=== PATIENT | female | born 1950 | race Caucasian/White ===

== ENCOUNTER 2017-05-08 18:32 | Emergency (ER) | payer MEDICARE, MEDICAID ==
[~2017-05-08 18:32] MED LIST: ALEN70TA5 PO; Albuterol Sulfate NEB; BEND25VI IV; CLON0.5T3 PO; CLON1TAB3 PO; DICY10CA53 PO; DIPH50VI IVP; DULO60CA6 PO; FLUC100T7 PO; FLUT9.9S NS; HYDR5SUS PO; Hydrocodone/Acetaminophen PO; LEVO500T59 PO; LEVO500T8 PO; LOPE1LIQ7 PO; LORA10TA68 PO; LOSA100T6 PO; MAGN100P MC; METR500T PO; MOME13HF IH; Metoprolol Tartrate IV; OMEP40CA5 PO; ONDA4TAB7 PO; OXCA150T3 PO; OXCA300T3 PO; POLY17PO29 PO; POTA20TA4 PO; PRED50TA PO; PROC25SU21 RC; PROM25TA10 PO; PYRI100T PO; RITU10VI IV; SULI200T2 PO; VALA500T5 PO; VENTOLIN HFA18 GM INH
[2017-05-08] MEDS ORDERED: ONDANSETRON ODT 4 MG TAB.RAPDIS. PO ONE (19:00)
[2017-05-08] MEDS ORDERED: LORazepam 1 MG TABLET PO ONE (19:00)
[2017-05-08 19:02] LABS: BILIRUBIN,URINE NEGATIVE (NEG); GLUCOSE,URINE NEGATIVE (NEG); NITRITE,URINE NEGATIVE (NEG); PH,URINE 8.5; PROTEIN,URINE NEGATIVE (NEG-TRACE); UROBILINOGEN,URINE 0.2 mg/dL (0.2 mg/dL)
[2017-05-08 19:06] LABS: BARBITURATES NEG (NEG); BENZODIAZEPINES NEG (NEG); CANNABINOIDS NEG (NEG); COCAINE NEG (NEG); METHADONE NEG (NEG); OPIATES NEG (NEG); PHENCYCLIDINE NEG (NEG)
[2017-05-08 19:13] LABS: BACTERIA,URINE FEW /HPF (0-FEW); RBC,URINE OCC /HPF (0-2); WBC,URINE OCC /HPF (0-4)
[2017-05-08 19:14] LABS: SQUAMOUS EPITHELIAL CELL,UR OCC /LPF
[2017-05-08 19:42] LABS: BASO % 1 % (0-3); EOS % 2 % (0-3); HEMATOCRIT 30.9 % (36.0-47.0); LYMPH # 0.4 x10^3/uL (1.0-4.8); LYMPH % 12 % (24-48); MEAN CORPUSCULAR HEMOGLOBIN 32 pg (25-35); MEAN CORPUSCULAR HGB CONC 36 g/dL (31-37); MEAN CORPUSCULAR VOLUME 88 fL (79-100); MONO % 12 % (0-9); NEUT % 73 % (31-73); PLATELET COUNT 181 x10^3/uL (140-400); RED CELL DISTRIBUTION WIDTH 13.3 % (11.5-14.5); WHITE BLOOD COUNT 3.8 x10^3/uL (4.0-11.0)
[2017-05-08 19:45] LABS: CALCIUM 8.5 mg/dL (8.5-10.1); CREATININE 0.8 mg/dL (0.6-1.0); GFR 71.1; POTASSIUM 4.1 mmol/L (3.5-5.1)
[2017-05-08 19:55] LABS: ETHANOL < 10 mg/dL (0-10)
[2017-05-08 19:59] LABS: ALBUMIN 3.7 g/dL (3.4-5.0); ALBUMIN/GLOBULIN RATIO 1.5 (1.0-1.7); MAGNESIUM 1.7 mg/dL (1.8-2.4); TOTAL BILIRUBIN 0.4 mg/dL (0.2-1.0); TOTAL PROTEIN 6.1 g/dL (6.4-8.2)
--- NOTE | 2017-05-08 20:39 | PHYS DOC ---
Past Medical History Past Medical History: Anxiety, Asthma, Bipolar, Cancer, Constipation, Depression, GERD, Hypertension, IBS, Migraines, Other Additional Past Medical Histor: Non Hodgkins Lymphoma- Mantle Cell Past Surgical History: Cholecystectomy, Tonsillectomy, Other Additional Past Surgical Histo: X3 D&C,GROIN BX,BONE MARROW BX,PORT-A-CATH PLACEMENT RIGHT CHEST Alcohol Use: None Drug Use: Benzodiazepine Adult General Chief Complaint Chief Complaint: SUICDAL IDEATION HPI HPI Patient is a 67 year old female presenting to the emergency department for evaluation of wanting to . She does not have a specific plan but she says with the chemotherapy and questionable family help that it has become too much and she wants to be gone. Review of Systems Review of Systems Constitutional: Denies fever or chills [] Respiratory: Denies cough or shortness of breath [] Cardiovascular: No additional information not addressed in HPI [] GI: Denies abdominal pain, nausea, vomiting, bloody stools or diarrhea [] Neurologic: Denies headache, focal weakness or sensory changes [] Current Medications Current Medications Current Medications Medications (Trade) Dose Ordered Sig/Lauryn Start Time Stop Time Status Last Admin Dose Admin Lorazepam (Ativan) 1 mg 1X ONCE 05/08/17 19:00 05/08/17 19:01 DC 05/08/17 19:19 1 MG Ondansetron HCl (Zofran Odt) 8 mg 1X ONCE 05/08/17 19:00 05/08/17 19:01 DC 05/08/17 19:20 8 MG Allergies Allergies Allergies Coded Allergies Type Severity Reaction Last Updated Verified Sulfa (Sulfonamide Antibiotics) Allergy Severe HIVES 05/04/15 Yes amoxicillin Allergy Severe N/V,HIVES 05/04/15 Yes aspirin Allergy Severe RASH ALL OVER BODY 05/07/15 Yes butalbital Allergy Severe RASH ALL OVER BODY 05/07/15 Yes caffeine Allergy Severe RASH ALL OVER BODY 05/07/15 Yes vancomycin Allergy Intermediate Rash 10/15/15 Yes Physical Exam Physical Exam Constitutional: Well developed, well nourished, no acute distress, non-toxic appearance. [] Cardiovascular:Heart rate regular rhythm, no murmur [] Lungs & Thorax: Bilateral breath sounds clear to auscultation [] Abdomen: Bowel sounds normal, soft, no tenderness, no masses, no pulsatile masses. [] Skin: Warm, dry, no erythema, no rash. [] Back: No tenderness, no CVA tenderness. [] Extremities: No tenderness, no cyanosis, no clubbing, ROM intact, no edema. [] Neurologic: Alert and oriented X 3, normal motor function, normal sensory function, no focal deficits noted. [] Current Patient Data Vital Signs Vital Signs Date Time Temp Pulse Resp B/P (MAP) Pulse Ox O2 Delivery O2 Flow Rate FiO2 05/08/17 18:48 98.0 76 18 147/80 (102) 100 Room Air 98.0 Lab Values Laboratory Tests Test 05/08/17 18:50 05/08/17 19:20 Urine Collection Type Unknown Urine Color Yellow Urine Clarity Clear Urine pH 8.5 Urine Specific [place] 1.010 Urine Protein Negative mg/dL (NEG-TRACE) Urine Glucose (UA) Negative mg/dL (NEG) Urine Ketones (Stick) Negative mg/dL (NEG) Urine Blood Negative (NEG) Urine Nitrite Negative (NEG) Urine Bilirubin Negative (NEG) Urine Urobilinogen Dipstick 0.2 mg/dL (0.2 mg/dL) Urine Leukocyte Esterase Negative (NEG) Urine RBC Occ /HPF (0-2) Urine WBC Occ /HPF (0-4) Urine Squamous Epithelial Cells Occ /LPF Urine Bacteria Few /HPF (0-FEW) Urine Opiates Screen Neg (NEG) Urine Methadone Screen Neg (NEG) Urine Barbiturates Neg (NEG) Urine Phencyclidine Screen Neg (NEG) Urine Amphetamine/Methamphetamine Neg (NEG) Urine Benzodiazepines Screen Neg (NEG) Urine Cocaine Screen Neg (NEG) Urine Cannabinoids Screen Neg (NEG) Urine Ethyl Alcohol Neg (NEG) White Blood Count 3.8 x10^3/uL (4.0-11.0) L Red Blood Count 3.50 x10^6/uL (3.50-5.40) Hemoglobin 11.0 g/dL (12.0-15.5) L Hematocrit 30.9 % (36.0-47.0) L Mean Corpuscular Volume 88 fL (79-100) Mean Corpuscular Hemoglobin 32 pg (25-35) Mean Corpuscular Hemoglobin Concent 36 g/dL (31-37) Red Cell Distribution Width 13.3 % (11.5-14.5) Platelet Count 181 x10^3/uL (140-400) Neutrophils (%) (Auto) 73 % (31-73) Lymphocytes (%) (Auto) 12 % (24-48) L Monocytes (%) (Auto) 12 % (0-9) H Eosinophils (%) (Auto) 2 % (0-3) Basophils (%) (Auto) 1 % (0-3) Neutrophils # (Auto) 2.8 x10^3uL (1.8-7.7) Lymphocytes # (Auto) 0.4 x10^3/uL (1.0-4.8) L Monocytes # (Auto) 0.4 x10^3/uL (0.0-1.1) Eosinophils # (Auto) 0.1 x10^3/uL (0.0-0.7) Basophils # (Auto) 0.0 x10^3/uL (0.0-0.2) Sodium Level 132 mmol/L (136-145) L Potassium Level 4.1 mmol/L (3.5-5.1) Chloride Level 97 mmol/L (98-107) L Carbon Dioxide Level 22 mmol/L (21-32) Anion Gap 13 (6-14) Blood Urea Nitrogen 9 mg/dL (7-20) Creatinine 0.8 mg/dL (0.6-1.0) Estimated GFR (Cockcroft-Gault) 71.1 BUN/Creatinine Ratio 11 (6-20) Glucose Level 107 mg/dL (70-99) H Calcium Level 8.5 mg/dL (8.5-10.1) Magnesium Level 1.7 mg/dL (1.8-2.4) L Total Bilirubin 0.4 mg/dL (0.2-1.0) Aspartate Amino Transferase (AST) 12 U/L (15-37) L Alanine Aminotransferase (ALT) 25 U/L (14-59) Alkaline Phosphatase 89 U/L (46-116) Total Protein 6.1 g/dL (6.4-8.2) L Albumin 3.7 g/dL (3.4-5.0) Albumin/Globulin Ratio 1.5 (1.0-1.7) Thyroid Stimulating Hormone (TSH) 1.888 uIU/mL (0.358-3.74) Salicylates Level < 2.8 mg/dL (2.8-20.0) L Salicylate Last Dose Date Salicylate Last Dose Time Acetaminophen Level < 2 mcg/ml (10-30) L Acetaminophen Last Dose Date Acetaminophen Last Dose Time Ethyl Alcohol Level < 10 mg/dL (0-10) Laboratory Tests 05/08/17 19:20 Laboratory Tests 05/08/17 19:20 EKG EKG [] Radiology/Procedures Radiology/Procedures [] Course & Med Decision Making Course & Med Decision Making Patient with suicidal ideation so the PACT team is speaking to the patient and will plan accordingly. Patient is medically cleared from my standpoint. Will transfer care while awaiting psychiatric plan. Dragon Disclaimer Dragon Disclaimer This electronic medical record was generated, in whole or in part, using a voice recognition dictation system. Departure Departure Impression: Primary Impression: Suicidal ideation Referrals: JANNY MAY MD (PCP) ALDO JOHNSON DO May 08, 2017 20:39
[2017-05-08 21:00] VITALS: BP 141/102
== END 2017-05-08 21:45 | disposition home or self-care (01) ==
LOC: ER 18:32
DX: R45.851 Suicidal ideations (principal); F41.9 Anxiety disorder, unspecified; I10 Essential (primary) hypertension; J45.909 Unspecified asthma, uncomplicated; K21.9 Gastro-esophageal reflux disease without esophagitis; K58.9 Irritable bowel syndrome, unspecified; G43.909 Migraine, unspecified, not intractable, without status migrainosus; F31.9 Bipolar disorder, unspecified; Z85.72 Personal history of non-Hodgkin lymphomas; Z90.710 Acquired absence of both cervix and uterus; Z88.2 Allergy status to sulfonamides; Z88.1 Allergy status to other antibiotic agents; Z88.6 Allergy status to analgesic agent; Z88.5 Allergy status to narcotic agent; Z88.8 Allergy status to other drugs, medicaments and biological substances
CPT/HCPCS: 36415; 80053; 80307; 80329; 81001; 83735; 84443; 85025; 99284; G0480; Q0162; G0479

== ENCOUNTER 2017-06-29 12:06 | Emergency (ER) | payer MEDICARE, MEDICAID ==
[~2017-06-29] VITALS: Ht 162.6 cm; Wt 56.7 kg
[2017-06-29] MEDS ORDERED: IV NORMAL SALINE 500ML BAG 500 ML IV ONE (14:00)
--- NOTE | 2017-06-29 14:19 | EKG ---
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
[2017-06-29 15:11] LABS: BASO % 1 % (0-3); EOS % 2 % (0-3); HEMATOCRIT 32.6 % (36.0-47.0); HEMOGLOBIN 11.4 g/dL (12.0-15.5); LYMPH # 0.4 x10^3/uL (1.0-4.8); LYMPH % 10 % (24-48); MEAN CORPUSCULAR HEMOGLOBIN 31 pg (25-35); MEAN CORPUSCULAR HGB CONC 35 g/dL (31-37); MEAN CORPUSCULAR VOLUME 90 fL (79-100); MONO % 14 % (0-9); NEUT % 73 % (31-73); PLATELET COUNT 170 x10^3/uL (140-400); RED BLOOD COUNT 3.64 x10^6/uL (3.50-5.40); RED CELL DISTRIBUTION WIDTH 13.1 % (11.5-14.5); WHITE BLOOD COUNT 4.2 x10^3/uL (4.0-11.0)
[2017-06-29 15:31] LABS: CALCIUM 8.6 mg/dL (8.5-10.1); CREATININE 0.7 mg/dL (0.6-1.0)
[2017-06-29 15:49] LABS: ALBUMIN 3.8 g/dL (3.4-5.0); DIRECT BILIRUBIN 0.1 mg/dL (0.0-0.2); TOTAL BILIRUBIN 0.4 mg/dL (0.2-1.0)
[2017-06-29 16:09] LABS: % EOS 4 % (0-5); PLT ESTIMATE ADEQUATE (ADEQUATE)
[2017-06-29 16:10] LABS: OVALOCYTES FEW; POIKILOCYTOSIS SLIGHT
[2017-06-29 16:30] VITALS: BP 154/77
[2017-06-29] MEDS ORDERED: POTA20TA82 PO (16:45)
--- NOTE | 2017-06-29 16:45 | PHYS DOC ---
Past Medical History Past Medical History: Anxiety, Asthma, Bipolar, Cancer, Constipation, Depression, GERD, Hypertension, IBS, Migraines, Other Additional Past Medical Histor: Non Hodgkins Lymphoma- Mantle Cell Past Surgical History: Cholecystectomy, Tonsillectomy, Other Additional Past Surgical Histo: X3 D&C,GROIN BX,BONE MARROW BX,PORT-A-CATH PLACEMENT RIGHT CHEST Alcohol Use: None Drug Use: Benzodiazepine Adult General Chief Complaint Chief Complaint: DIARRHEA HPI HPI 67-year-old female presenting to the emergency department today with watery diarrhea this started about 3:00 this morning. She describes a bloating of the abdomen but no abdominal pain. She has been on antibiotics for sinus infection and currently undergoes chemotherapy for history of lymphoma. She denies having fevers or chills. Location GI tract. Duration intermittent. No alleviating or exacerbating factors. Review of systems is negative for chest pain shortness of breath fevers chills nausea or vomiting. All other review of systems is negative unless otherwise noted in history of present illness. ED course: 67-year-old female presenting to the emergency department today with watery diarrhea. Triage vital signs show hypertension otherwise her heart rate is within normal limits. Afebrile. Abdominal exam shows a soft nontender abdomen which is nondistended with normal bowel sounds. Otherwise lungs are clear to auscultation. The remainder the exam is unremarkable. IV established and 500 mL bolus given. Blood work obtained which showed low potassium. Given the patient's diarrhea in the context of antibiotic use we did send a Clostridium difficile PCR. This test does not come back while the patient is in the emergency department. Patient's vital signs have remained stable in the emergency department under observation. She is feeling better after her 500 mL bolus of fluids. I did explain to her that it is possible that this test could be positive and she would need to come back for antibiotic therapy for Clostridium difficile. Patient is comfortable with this plan. Clinically, the patient does not need to be admitted. The patient was then discharged home with oral potassium to follow-up with her doctor the next few days. I recommended she stop taking her antibiotics as there likely causing her diarrhea. Blood pressure came down in the emergency department. The patient was then discharged home in stable condition to follow up with their primary care physician over the next 2-3 days. They were to return if their symptoms worsened or if they were concerned for any reason. [id number] discharge instructions and return precautions were given. Patient's questions were answered to their satisfaction. Patient is comfortable plan. Review of Systems Review of Systems SEE ABOVE. Current Medications Current Medications Current Medications Medications (Trade) Dose Ordered Sig/Lauryn Start Time Stop Time Status Last Admin Dose Admin Heparin Sodium (Porcine) (Hep Lock Adult) 500 unit STK-MED ONCE 06/29/17 17:14 06/29/17 17:15 DC Sodium Chloride 500 ml @ 500 mls/hr 1X ONCE 06/29/17 14:00 06/29/17 14:59 DC 06/29/17 15:01 500 MLS/HR Allergies Allergies Allergies Coded Allergies Type Severity Reaction Last Updated Verified Sulfa (Sulfonamide Antibiotics) Allergy Severe HIVES 05/04/15 Yes amoxicillin Allergy Severe N/V,HIVES 05/04/15 Yes aspirin Allergy Severe RASH ALL OVER BODY 05/07/15 Yes butalbital Allergy Severe RASH ALL OVER BODY 05/07/15 Yes caffeine Allergy Severe RASH ALL OVER BODY 05/07/15 Yes vancomycin Allergy Intermediate Rash 10/15/15 Yes Physical Exam Physical Exam SEE ABOVE Constitutional: Well developed, well nourished, no acute distress, non-toxic appearance. [] HENT: Normocephalic, atraumatic, bilateral external ears normal, oropharynx moist, no oral exudates, nose normal. [] Eyes: PERRLA, EOMI, conjunctiva normal, no discharge. [] Neck: Normal range of motion, no tenderness, supple, no stridor. [] Cardiovascular:Heart rate regular rhythm, no murmur [] Lungs & Thorax: Bilateral breath sounds clear to auscultation [] Abdomen: SEE ABOVE Skin: Warm, dry, no erythema, no rash. [] Back: No tenderness, no CVA tenderness. [] Extremities: No tenderness, no cyanosis, no clubbing, ROM intact, no edema. [] Neurologic: Alert and oriented X 3, normal motor function, normal sensory function, no focal deficits noted. [] Psychologic: Affect normal, judgement normal, mood normal. [] Current Patient Data Vital Signs Vital Signs Date Time Temp Pulse Resp B/P (MAP) Pulse Ox O2 Delivery O2 Flow Rate FiO2 06/29/17 16:30 92 20 154/77 (102) 100 Room Air 06/29/17 13:35 97.9 97.9 Lab Values Laboratory Tests Test 06/29/17 14:55 White Blood Count 4.2 x10^3/uL (4.0-11.0) Red Blood Count 3.64 x10^6/uL (3.50-5.40) Hemoglobin 11.4 g/dL (12.0-15.5) L Hematocrit 32.6 % (36.0-47.0) L Mean Corpuscular Volume 90 fL (79-100) Mean Corpuscular Hemoglobin 31 pg (25-35) Mean Corpuscular Hemoglobin Concent 35 g/dL (31-37) Red Cell Distribution Width 13.1 % (11.5-14.5) Platelet Count 170 x10^3/uL (140-400) Neutrophils (%) (Auto) 73 % (31-73) Lymphocytes (%) (Auto) 10 % (24-48) L Monocytes (%) (Auto) 14 % (0-9) H Eosinophils (%) (Auto) 2 % (0-3) Basophils (%) (Auto) 1 % (0-3) Neutrophils # (Auto) 3.1 x10^3uL (1.8-7.7) Lymphocytes # (Auto) 0.4 x10^3/uL (1.0-4.8) L Monocytes # (Auto) 0.6 x10^3/uL (0.0-1.1) Eosinophils # (Auto) 0.1 x10^3/uL (0.0-0.7) Basophils # (Auto) 0.0 x10^3/uL (0.0-0.2) Segmented Neutrophils % 62 % (35-66) Band Neutrophils % 11 % (0-9) H Lymphocytes % 11 % (24-48) L Monocytes % 12 % (0-10) H Eosinophils % 4 % (0-5) Platelet Estimate Adequate (ADEQUATE) Poikilocytosis Slight Ovalocytes Few Sodium Level 134 mmol/L (136-145) L Potassium Level 3.0 mmol/L (3.5-5.1) L Chloride Level 100 mmol/L (98-107) Carbon Dioxide Level 24 mmol/L (21-32) Anion Gap 10 (6-14) Blood Urea Nitrogen 14 mg/dL (7-20) Creatinine 0.7 mg/dL (0.6-1.0) Estimated GFR (Cockcroft-Gault) 83.0 Glucose Level 90 mg/dL (70-99) Lactic Acid Level 1.0 mmol/L (0.4-2.0) Calcium Level 8.6 mg/dL (8.5-10.1) Total Bilirubin 0.4 mg/dL (0.2-1.0) Direct Bilirubin 0.1 mg/dL (0.0-0.2) Aspartate Amino Transferase (AST) 14 U/L (15-37) L Alanine Aminotransferase (ALT) 32 U/L (14-59) Alkaline Phosphatase 98 U/L (46-116) Troponin I Quantitative < 0.017 ng/mL (0.000-0.055) VQ-Pmp-C-Type Natriuretic Peptide 276 pg/mL (0-124) H Total Protein 6.0 g/dL (6.4-8.2) L Albumin 3.8 g/dL (3.4-5.0) Lipase 190 U/L (73-393) Laboratory Tests 06/29/17 14:55 Laboratory Tests 06/29/17 14:55 EKG EKG [] Radiology/Procedures Radiology/Procedures [] Course & Med Decision Making Course & Med Decision Making Pertinent Labs and Imaging studies reviewed. (See chart for details) [] Dragon Disclaimer Dragon Disclaimer This electronic medical record was generated, in whole or in part, using a voice recognition dictation system. Departure Departure Impression: Primary Impression: Diarrhea Disposition: 01 HOME, SELF-CARE Condition: STABLE Referrals: JANNY MAY MD (PCP) Patient Instructions: Diarrhea Additional Instructions: Thank you for allowing us to participate in your care today. Followup with your primary care physician in 3 days if your symptoms do not improve. Call your Primary Doctor tomorrow and inform them of your visit today. If you do not have a primary care provider you can ask for a list of our primary care providers. Return to the emergency department you have any new or concerning findings. This should be evaluated by the primary care physician and any necessary consulting services for continued management within a few days after discharge. Return to emergency room if you have any new or concerning symptoms including but not limited to fever, chills, nausea, vomiting, intractable pain, any new rashes, chest pain, shortness of air, uncontrolled bleeding, difficulty breathing, and/or vision loss. Scripts Potassium Chloride (POTASSIUM CHLORIDE) 20 Meq Tablet.er 20 MEQ PO DAILY for 7 Days, #7 TAB.SR 0 Refills Prov: RONN GIBSON MD 06/29/17 RONN GIBSON MD Jun 29, 2017 16:45
[2017-06-29] MEDS ORDERED: HEPARIN PF 500 UNIT/5 ML DISP.SYRIN. IV ONE (17:14)
== END 2017-06-29 17:20 | disposition home or self-care (01) ==
LOC: ER 12:06
DX: R19.7 Diarrhea, unspecified (principal); R14.0 Abdominal distension (gaseous); K21.9 Gastro-esophageal reflux disease without esophagitis; J45.909 Unspecified asthma, uncomplicated; I10 Essential (primary) hypertension; K58.0 Irritable bowel syndrome with diarrhea; G43.909 Migraine, unspecified, not intractable, without status migrainosus; F31.9 Bipolar disorder, unspecified; Z90.49 Acquired absence of other specified parts of digestive tract; Z85.72 Personal history of non-Hodgkin lymphomas; Z88.2 Allergy status to sulfonamides; Z88.1 Allergy status to other antibiotic agents; Z88.6 Allergy status to analgesic agent; Z88.8 Allergy status to other drugs, medicaments and biological substances
CPT/HCPCS: 36415; 80048; 80076; 83605; 83690; 83880; 84484; 85007; 85025; 87324; 93005; 96360; 99285; J7040

== ENCOUNTER 2017-09-06 15:18 | Inpatient (IN) | payer MEDICARE, MEDICAID ==
[~2017-09-06] VITALS: Ht 160 cm; Wt 54.9 kg
[~2017-09-06 15:18] MED LIST changes: +POTA20TA82 PO
[2017-09-06 16:18] LABS: BASO % 1 % (0-3); EOS % 2 % (0-3); HEMATOCRIT 33.9 % (36.0-47.0); HEMOGLOBIN 11.5 g/dL (12.0-15.5); LYMPH # 0.4 x10^3/uL (1.0-4.8); LYMPH % 16 % (24-48); MEAN CORPUSCULAR HEMOGLOBIN 31 pg (25-35); MEAN CORPUSCULAR HGB CONC 34 g/dL (31-37); MEAN CORPUSCULAR VOLUME 91 fL (79-100); MONO % 13 % (0-9); NEUT % 68 % (31-73); PLATELET COUNT 212 x10^3/uL (140-400); RED BLOOD COUNT 3.72 x10^6/uL (3.50-5.40); RED CELL DISTRIBUTION WIDTH 13.8 % (11.5-14.5); WHITE BLOOD COUNT 2.6 x10^3/uL (4.0-11.0)
[2017-09-06 16:33] LABS: CALCIUM 8.2 mg/dL (8.5-10.1); CREATININE 0.5 mg/dL (0.6-1.0); GFR 122.3; POTASSIUM 3.9 mmol/L (3.5-5.1)
--- NOTE | 2017-09-06 16:36 | EKG ---
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
--- NOTE | 2017-09-06 16:37 | PHYS DOC ---
Past Medical History Past Medical History: Anxiety, Asthma, Bipolar, Cancer, Constipation, Depression, GERD, Hypertension, IBS, Migraines, Other Additional Past Medical Histor: Non Hodgkins Lymphoma- Mantle Cell Past Surgical History: Cholecystectomy, Tonsillectomy, Other Additional Past Surgical Histo: X3 D&C,GROIN BX,BONE MARROW BX,PORT-A-CATH PLACEMENT RIGHT CHEST Alcohol Use: None Drug Use: Benzodiazepine Adult General Chief Complaint Chief Complaint: NEURO SYMPTOMS/DEFICITS HPI HPI Patient is a 67 year old F who presents with headache and neck pain. 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 Patient severed had symptoms like this before. Patient states the symptoms lasted for approximately 30 minutes and then her vision got better however the headache and neck pain is still present. In the emergency room patient still complains of a headache and neck pain. Patient also complains of some chest heaviness but declines any shortness of breath. Patient denied any other neurological deficits in the arms or legs and has no other complaints. Review of Systems Review of Systems GEN: Denies fevers, chills, sweats HEENT: Neck pain CV: Denies chest pain RESP: Denies shortness of air, cough GI: Denies n/v/d NEURO: Headache MSK: Denies weakness, joint pain/swelling All other systems were reviewed and found to be within normal limits, except as documented in this note. Current Medications Current Medications Current Medications Medications (Trade) Dose Ordered Sig/Lauryn Start Time Stop Time Status Last Admin Dose Admin Fentanyl Citrate (Fentanyl 2ml Vial) 50 mcg PRN Q1HR PRN 09/06/17 18:45 09/07/17 18:44 Info (Do NOT chart on this entry -- for MONITORING) 1 each PRN DAILY PRN 09/06/17 16:45 09/08/17 16:44 Iohexol (Omnipaque 300 Mg/ml) 75 ml 1X ONCE 09/06/17 16:45 09/06/17 16:46 DC Ondansetron HCl (Zofran) 4 mg PRN Q8HRS PRN 09/06/17 18:45 09/07/17 18:44 Allergies Allergies Allergies Coded Allergies Type Severity Reaction Last Updated Verified Sulfa (Sulfonamide Antibiotics) Allergy Severe HIVES 05/04/15 Yes amoxicillin Allergy Severe N/V,HIVES 05/04/15 Yes aspirin Allergy Severe RASH ALL OVER BODY 05/07/15 Yes butalbital Allergy Severe RASH ALL OVER BODY 05/07/15 Yes caffeine Allergy Severe RASH ALL OVER BODY 05/07/15 Yes vancomycin Allergy Intermediate Rash 10/15/15 Yes Physical Exam Physical Exam GEN.: Mild distress. Alert and oriented. HEENT: Head is normocephalic, atraumatic NECK: Supple, no C-spine midline tenderness LUNGS: CTAB. HEART: RRR, S1, S2 present. Peripheral pulses intact ABDOMEN: Soft, nontender. Positive bowel sounds. EXTREMITIES: Without any cyanosis, 5/5 muscle strength to the upper extremity and lower extremity bilateral NEUROLOGIC: Normal speech, normal tone, cranial nerves II through XII are grossly intact without any focal neurological deficits PSYCHIATRIC: Normal affect, normal mood. SKIN: No ulcerations Current Patient Data Vital Signs Vital Signs Date Time Temp Pulse Resp B/P (MAP) Pulse Ox O2 Delivery O2 Flow Rate FiO2 09/06/17 17:09 Room Air 09/06/17 15:19 97.8 81 21 182/78 (112) 98 97.8 Lab Values Laboratory Tests Test 09/06/17 15:45 09/06/17 17:10 White Blood Count 2.6 x10^3/uL (4.0-11.0) L Red Blood Count 3.72 x10^6/uL (3.50-5.40) Hemoglobin 11.5 g/dL (12.0-15.5) L Hematocrit 33.9 % (36.0-47.0) L Mean Corpuscular Volume 91 fL (79-100) Mean Corpuscular Hemoglobin 31 pg (25-35) Mean Corpuscular Hemoglobin Concent 34 g/dL (31-37) Red Cell Distribution Width 13.8 % (11.5-14.5) Platelet Count 212 x10^3/uL (140-400) Neutrophils (%) (Auto) 68 % (31-73) Lymphocytes (%) (Auto) 16 % (24-48) L Monocytes (%) (Auto) 13 % (0-9) H Eosinophils (%) (Auto) 2 % (0-3) Basophils (%) (Auto) 1 % (0-3) Neutrophils # (Auto) 1.8 x10^3uL (1.8-7.7) Lymphocytes # (Auto) 0.4 x10^3/uL (1.0-4.8) L Monocytes # (Auto) 0.3 x10^3/uL (0.0-1.1) Eosinophils # (Auto) 0.1 x10^3/uL (0.0-0.7) Basophils # (Auto) 0.0 x10^3/uL (0.0-0.2) Segmented Neutrophils % 73 % (35-66) H Band Neutrophils % 2 % (0-9) Lymphocytes % 13 % (24-48) L Monocytes % 10 % (0-10) Eosinophils % 2 % (0-5) Platelet Estimate Adequate (ADEQUATE) Large Platelets Occ Polychromasia Slight Target Cells Occ Ovalocytes Occ Sodium Level 140 mmol/L (136-145) Potassium Level 3.9 mmol/L (3.5-5.1) Chloride Level 103 mmol/L (98-107) Carbon Dioxide Level 25 mmol/L (21-32) Anion Gap 12 (6-14) Blood Urea Nitrogen 10 mg/dL (7-20) Creatinine 0.5 mg/dL (0.6-1.0) L Estimated GFR (Cockcroft-Gault) 122.3 BUN/Creatinine Ratio 20 (6-20) Glucose Level 89 mg/dL (70-99) Calcium Level 8.2 mg/dL (8.5-10.1) L Total Bilirubin 0.2 mg/dL (0.2-1.0) Aspartate Amino Transferase (AST) 17 U/L (15-37) Alanine Aminotransferase (ALT) 32 U/L (14-59) Alkaline Phosphatase 83 U/L (46-116) Troponin I Quantitative < 0.017 ng/mL (0.000-0.055) Total Protein 5.6 g/dL (6.4-8.2) L Albumin 3.5 g/dL (3.4-5.0) Albumin/Globulin Ratio 1.7 (1.0-1.7) Urine Color Yellow Urine Clarity Clear Urine pH 8.5 Urine Specific [place] 1.015 Urine Protein Negative mg/dL (NEG-TRACE) Urine Glucose (UA) Negative mg/dL (NEG) Urine Ketones (Stick) Negative mg/dL (NEG) Urine Blood Negative (NEG) Urine Nitrite Negative (NEG) Urine Bilirubin Negative (NEG) Urine Urobilinogen Dipstick 0.2 mg/dL (0.2 mg/dL) Urine Leukocyte Esterase Negative (NEG) Urine RBC 0 /HPF (0-2) Urine WBC Occ /HPF (0-4) Urine Squamous Epithelial Cells Occ /LPF Urine Bacteria 0 /HPF (0-FEW) Laboratory Tests 09/06/17 15:45 Laboratory Tests 09/06/17 15:45 EKG EKG 1635: EKG shows normal sinus rhythm rate of 76 no STEMI[] Radiology/Procedures Radiology/Procedures CTA head and neck NAD[] Course & Med Decision Making Course & Med Decision Making Pertinent Labs and Imaging studies reviewed. (See chart for details) ED course: Patient was seen and examined emergency room basic blood work was ordered along with a CTA head and neck Patient was updated on CT findings of no acute dissection however she still having neck pain and a headache therefore explained to the patient that we'll admit her and obtain an MRI of her head and neck 1820: Discussed CC/HP/PMH with Dr. Baugh and recommends admit with neurology on consult MDM: After reviewing the chart, CC/HPI/PMH, physical exam, [lab results], [ radiological results], I have concern the patient may have had a TIA and since the patient still having persistent neck and head pain will admit to the hospital for further evaluation and management and obtain an MRI of the head and neck. I've low mc for acute subarachnoid bleeding at this time I do not believe an LP is warranted. Dragon Disclaimer Dragon Disclaimer This electronic medical record was generated, in whole or in part, using a voice recognition dictation system. Departure Departure Impression: Primary Impression: Headache Additional Impression: Neck pain Disposition: ADMITTED INPATIENT Admitting Physician: Other (Amauri) Condition: STABLE Referrals: JANNY MAY MD (PCP) Problem Qualifiers MARLENA BAXTER DO Sep 06, 2017 16:36
[2017-09-06 16:39] LABS: ALBUMIN 3.5 g/dL (3.4-5.0); ALBUMIN/GLOBULIN RATIO 1.7 (1.0-1.7); TOTAL BILIRUBIN 0.2 mg/dL (0.2-1.0); TOTAL PROTEIN 5.6 g/dL (6.4-8.2)
[2017-09-06] MEDS ORDERED: CONTRAST GIVEN MC PRN (16:45)
[2017-09-06] MEDS ORDERED: fentaNYL PF VIAL 100 MCG/2 ML VIAL IV ONE (16:45)
[2017-09-06] MEDS ORDERED: IOHEXOL 300 MG/ML 100ML VIAL. IV ONE (16:45)
[2017-09-06 17:24] LABS: BILIRUBIN,URINE NEGATIVE (NEG); GLUCOSE,URINE NEGATIVE (NEG); NITRITE,URINE NEGATIVE (NEG); PH,URINE 8.5; PROTEIN,URINE NEGATIVE (NEG-TRACE); UROBILINOGEN,URINE 0.2 mg/dL (0.2 mg/dL)
[2017-09-06 17:29] LABS: % EOS 2 % (0-5); OVALOCYTES OCC; PLT ESTIMATE ADEQUATE (ADEQUATE); POLYCHROMASIA SLIGHT; TARGET CELLS OCC
--- NOTE | 2017-09-06 17:31 | RAD ---
CTA head and neck History: Headache and neck pain Technique: Noncontrast head CT was performed in correlation with this exam. After bolus of intravenous contrast, volumetric CT data acquisition was acquired of the head and neck. Multiplanar reconstruction images to include MIP and 3-D reconstruction images are submitted. Exposure: One or more of the following individualized dose reduction techniques were utilized for this examination: 1. Automated exposure control 2. Adjustment of the mA and/or kV according to patient size 3. Use of iterative reconstruction technique. Contrast: 75 cc Omnipaque 300 Comparison: None Any determination of stenosis is based on NASCET criteria. CTA head: Findings: There is some motion degradation.Both vertebral arteries constitute a basilar artery. There is visualization of segments of left PICA, bilateral AICAs, and superior cerebellar arteries. No significant posterior communicating arteries are visualized. There is patent anterior communicating artery. Right A1 segment is somewhat small in caliber compared with the left. There is visualization of segments of the anterior, middle, posterior cerebral arteries bilaterally. No significant intracranial aneurysm or stenosis is identified. Right transverse and sigmoid sinuses are dominant, hypoplastic on the left. Impression: 1. No significant intracranial stenosis or aneurysm is identified of the visualized intracranial vasculature. There is some motion degradation. Neck CTA: Findings: There is tortuosity of the cervical internal carotid arteries bilaterally, some medial deviation of the carotid arteries in the neck bilaterally into the retropharyngeal region greater on the right. No dissection flap is identified of the cervical arterial vasculature. No significant focal stenosis is identified. There is multilevel cervical facet degenerative change. There is multilevel advanced cervical degenerative disc disease C4-5 to C6-7 and to lesser degree at C3-4 with spondylosis at the same levels. There is multilevel cervical neural foramina compromise poorly characterized on this exam. There is at least mild spinal stenosis such as C3-4 through C6-7. Impression: 1. No significant stenosis or dissection flap is identified of the cervical arterial vasculature. 2. There is multilevel cervical degenerative disc disease and spondylosis. There is multilevel cervical spinal stenosis as well as neural foramina compromise. There is multilevel facet and uncovertebral degenerative change. Electronically signed by: Froilan Szymanski MD (09/06/2017 5:28 PM) [id number]
[2017-09-06 17:32] LABS: BACTERIA,URINE 0 /HPF (0-FEW); RBC,URINE 0 /HPF (0-2); SQUAMOUS EPITHELIAL CELL,UR OCC /LPF; WBC,URINE OCC /HPF (0-4)
[2017-09-06] MEDS ORDERED: fentaNYL PF VIAL 100 MCG/2 ML VIAL IV PRN (18:45)
[2017-09-06] MEDS ORDERED: ONDANSETRON PF 4 MG/2 ML VIAL. IV PRN (18:45)
[2017-09-06] MEDS ORDERED: GADOBUTROL 7.5 MMOL/7.5 ML VIAL IV ONE (19:30)
--- NOTE | 2017-09-06 20:57 | RAD ---
MRI of the C-spine without contrast HISTORY: Headache Multi sequential imaging of the cervical spine was performed before and after the administration of 5 mL IV gadovist. The vertebral bodies are aligned. There is no loss of vertebral body stature. There is no prevertebral soft tissue swelling. There is normal marrow signal. There is diffuse circumferential disc bulges resulting in flattening of the thecal sac at C4-C7 with complete effacement of CSF around the cord. It is not appearing flattening the cord. Cord has normal caliber and signal. At C3-C4 there is mild to moderate narrowing of the right neuroforamen. At C4-C5 there is mild narrowing of the neuroforamen bilaterally. At C5-C6 and C6-C7 there is mild narrowing of the neuroforamen bilaterally. IMPRESSION: Degenerative changes of the cervical spine with central and neural foraminal stenosis. No acute findings. Electronically signed by: Dave Treviño III, MD (09/06/2017 8:53 PM) [facility]
--- NOTE | 2017-09-06 21:10 | RAD ---
Brain MRI, With and Without Contrast: History: Head and neck pain Technique: Multiplanar and multisequence imaging of the brain was performed, before and after the administration of 5 cc of IV gadovist contrast. Diffusion weighted sequences were performed. Findings: There is no mass effect or extraaxial fluid collections. There is no hydrocephalus. There is moderate diffuse cerebral atrophy. There is mild patchy white matter signal abnormality in the periventricular and subcortical white matter with high signal on T2 in the low to intermediate signal on T1. Diffusion weighted sequences demonstrate no imaging evidence of acute ischemia. There is no mass. There is no gross bleed. There is no abnormal enhancement. Impression: 1. Moderate diffuse age expected atrophy. 2.Mild diffuse white matter disease is nonspecific but likely secondary to chronic small vessel disease. 3. No acute findings. Electronically signed by: Dave Treviño III, MD (09/06/2017 9:07 PM) [facility]
[2017-09-06] MEDS ORDERED: LOSA100T2 PO (22:08)
[2017-09-06] MEDS ORDERED: CETI10TA16 PO (22:08)
[2017-09-06] MEDS ORDERED: HYOS0.1278 SL (22:08)
[2017-09-06] MEDS ORDERED: CALC1CAP7 PO (22:13)
[2017-09-06] MEDS ORDERED: ASCO500T PO (22:13)
[2017-09-06] MEDS ORDERED: MELA3TAB2 PO (22:13)
[2017-09-06] MEDS ORDERED: LACT1CAP21 PO (22:13)
[2017-09-06] MEDS ORDERED: CARV6.25 PO (22:13)
[2017-09-06] MEDS ORDERED: MULT1TAB52 PO (22:13)
[2017-09-06] MEDS ORDERED: VENTOLIN HFA18 GM INH (22:14)
[2017-09-06] MEDS ORDERED: HYOSCYAMINE 0.125 MG TAB.RAPDIS PO PRN (23:15)
[2017-09-06] MEDS ORDERED: NON FORMULARY ITEM ([Albuterol Sulfate] (Ventolin Neb Soln) 2.5 MG) NEB PRN (23:15)
[2017-09-06 23:31] VITALS: BP 147/74
[2017-09-07] MEDS: OXcarbazepine 300 MG TABLET PO SCH ×3 (00:01→21:52)
--- NOTE | 2017-09-07 00:38 | HP ---
ADMIT DATE: 09/06/2017 CHIEF COMPLAINT: Dysarthria. HISTORY OF PRESENT ILLNESS: The patient is a 67-year-old woman with past medical history of bipolar disorder, asthma, and mantle cell lymphoma who presented to the Emergency Room after an episode of dysarthria and garbled speech. 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 She also had a headache that became worse and worse with right-sided neck pain and recalls that in the past couple of days she had white spots in front of her eyes "like slow flakes" from time to time. She relates that she has been diagnosed with neck arthritis and pain is typically on the left at this time; however, it was on the right. The symptoms actually spontaneously resolved save for the headache and neck pain. She denies any shortness of breath, nausea, vomiting or other neurological symptoms. She relates that she had been diagnosed with a complex migraine episode in 2005, no problems since. PAST MEDICAL HISTORY: Bipolar disorder, asthma, mantle cell lymphoma, hypertension, IBS, migraines, GERD. PAST SURGICAL HISTORY: She is status post cholecystectomy, tonsillectomy and D and C. FAMILY HISTORY: Positive for heart disease. SOCIAL HISTORY: She is , living with children and no toxic habits. ALLERGIES: SULFA, AMOXICILLIN, ASPIRIN, BUTALBITAL, CAFFEINE, AND VANCOMYCIN. MEDICATIONS: MAR reconciled with home medications. REVIEW OF SYSTEMS: Positive as per HPI. Currently, only headaches and neck pain in entire organ system review. PHYSICAL EXAMINATION: VITAL SIGNS: Show a blood pressure of 182/78 at admission in the Emergency Room, heart rate of 78, respiratory rate at 12. She is afebrile. GENERAL: This is a slim 67-year-old woman, alert and oriented, in no acute distress. HEENT: Shows no scleral icterus. NECK: Supple. LUNGS: Clear. HEART: Regular rate and rhythm. ABDOMEN: Has positive bowel sounds, soft, nontender. EXTREMITIES: Show no edema. SKIN: Warm, soft and dry. NEUROLOGIC: Shows cranial nerves 2-12 grossly intact. Muscle strength is 5/5 throughout. LABORATORY DATA: CBC with a WBC of 2.6, hemoglobin 11.5, platelets of 212. Chemistries with a BUN and creatinine of 10 and 0.5, normal electrolytes and normal LFTs. Albumin at 3.5. Urine is negative for any signs of infection. IMAGING: Cervical spine MRI as well as brain MRI shows moderate diffuse age-expected atrophy, mild diffuse white matter disease is nonspecific, but likely secondary to chronic small vessel disease, no acute findings. Head and neck CTA shows no significant stenosis or dissection flap in the cervical-arterial vasculature, multilevel cervical degenerative disk disease and spondylosis. ASSESSMENT AND PLAN: The patient is a 67-year-old woman presenting with some neurological symptoms, which now has resolved, unlikely to be stroke or TIA, but we will obtain neurological consult. MRI and CTA are essentially negative for disease in the neck or brain. She does have some DJD as known. We will continue all her other home medications for the time being. Await further input from Dr. Suggs. ROOSEVELT STEARNS MD DR: UR/nts JOB#: [id number] / [id number] JANNY Villalobos MD [facility]ITALNemesio
[2017-09-07] MEDS ORDERED: ALBUTEROL SULFATE 2.5 MG/3 ML NEBU. NEB PRN (01:00)
[2017-09-07 03:30] VITALS: BP 137/70
[2017-09-07] MEDS: ONDANSETRON ODT 4 MG TAB.RAPDIS. PO SCH ×3 (05:28→22:00)
[2017-09-07 07:09] LABS: CREATININE 0.7 mg/dL (0.6-1.0); POTASSIUM 3.3 mmol/L (3.5-5.1)
[2017-09-07 07:13] LABS: BASO % 0 % (0-3); EOS % 4 % (0-3); LYMPH # 0.1 x10^3/uL (1.0-4.8); LYMPH % 6 % (24-48); MEAN CORPUSCULAR HEMOGLOBIN 30 pg (25-35); MEAN CORPUSCULAR HGB CONC 34 g/dL (31-37); MEAN CORPUSCULAR VOLUME 90 fL (79-100); MONO % 6 % (0-9); NEUT % 84 % (31-73); PLATELET COUNT 201 x10^3/uL (140-400); RED BLOOD COUNT 3.99 x10^6/uL (3.50-5.40); RED CELL DISTRIBUTION WIDTH 13.8 % (11.5-14.5); WHITE BLOOD COUNT 2.4 x10^3/uL (4.0-11.0)
[2017-09-07 07:30] VITALS: BP 100/43
[2017-09-07] MEDS: PANTOPRAZOLE 40 MG TABLET.DR. PO SCH ×2 (08:37→17:13)
[2017-09-07] MEDS: CARVEDILOL 6.25 MG TABLET. PO SCH ×2 (08:38→17:25)
[2017-09-07] MEDS: clonazePAM 0.5 MG TABLET PO SCH ×3 (08:39→21:50)
[2017-09-07] MEDS: CETIRIZINE HCL 10 MG TABLET. PO SCH (08:39)
[2017-09-07] MEDS: DICYCLOMINE HCL 10 MG CAPSULE PO SCH ×3 (08:39→21:52)
[2017-09-07] MEDS: POTASSIUM CHLORIDE 20 MEQ TABLET.ER. PO SCH (08:40)
[2017-09-07] MEDS: DULoxetine HCL 30 MG CAPSULE.DR PO SCH (08:40)
[2017-09-07] MEDS: LOSARTAN POTASSIUM 50 MG TABLET. PO SCH (08:41)
[2017-09-07] MEDS: ALBUTEROL SULFATE 2.5 MG/3 ML NEBU. NEB SCH ×4 (08:57→19:59)
[2017-09-07] MEDS: BUDESONIDE 0.5 MG/2 ML NEBU. NEB SCH ×2 (08:57→19:59)
[2017-09-07] MEDS ORDERED: NON FORMULARY ITEM (Mometasone/Formoterol (Dulera 200 Mcg/5 Mcg Inhaler) 2 PUFF) IH SCH (09:00)
[2017-09-07] MEDS ORDERED: NON FORMULARY ITEM (Albuterol Sulfate (Ventolin Hfa Inhaler) 2 PUFF) INH SCH (09:00)
[2017-09-07 10:58] VITALS: BP 128/61
[2017-09-07 14:59] VITALS: BP 120/64
--- NOTE | 2017-09-07 16:06 | PDOC ---
PROGRESS NOTES Chief Complaint Chief Complaint Neurol deficits ASSESSMENT AND PLAN: 1. Expressive aphasia: resolved by the time she arrived in ER. MRI and CTA are essentially negative. awaiting Dr Suggs's input 2. Cervical DJD: known. suspect etiology of neck pain and arm paresthesias 3. Flushed upper torso and face: poss drug/contrast dye ASE. declines benadryl. ibuprofen PRN 4. Dispo: anticipate home in AM History of Present Illness History of Present Illness feels "awful", with flushing in face waxing and waning. mild LARIOS. Vitals Vitals Vital Signs Date Time Temp Pulse Resp B/P (MAP) Pulse Ox O2 Delivery O2 Flow Rate FiO2 09/07/17 14:59 98.2 92 16 120/64 (82) 100 Room Air 98.2 Physical Exam Physical Exam flushed General: Alert, Oriented X3, Cooperative, No acute distress Heart: Regular rate Lungs: Clear Abdomen: Normal bowel sounds, No tenderness Extremities: No clubbing Skin: Other (facial flushing) Labs LABS Laboratory Tests Test 09/06/17 17:10 09/07/17 06:50 Urine Color Yellow Urine Clarity Clear Urine pH 8.5 Urine Specific [place] 1.015 Urine Protein Negative mg/dL (NEG-TRACE) Urine Glucose (UA) Negative mg/dL (NEG) Urine Ketones (Stick) Negative mg/dL (NEG) Urine Blood Negative (NEG) Urine Nitrite Negative (NEG) Urine Bilirubin Negative (NEG) Urine Urobilinogen Dipstick 0.2 mg/dL (0.2 mg/dL) Urine Leukocyte Esterase Negative (NEG) Urine RBC 0 /HPF (0-2) Urine WBC Occ /HPF (0-4) Urine Squamous Epithelial Cells Occ /LPF Urine Bacteria 0 /HPF (0-FEW) White Blood Count 2.4 x10^3/uL (4.0-11.0) Red Blood Count 3.99 x10^6/uL (3.50-5.40) Hemoglobin 12.0 g/dL (12.0-15.5) Hematocrit 36.0 % (36.0-47.0) Mean Corpuscular Volume 90 fL (79-100) Mean Corpuscular Hemoglobin 30 pg (25-35) Mean Corpuscular Hemoglobin Concent 34 g/dL (31-37) Red Cell Distribution Width 13.8 % (11.5-14.5) Platelet Count 201 x10^3/uL (140-400) Neutrophils (%) (Auto) 84 % (31-73) Lymphocytes (%) (Auto) 6 % (24-48) Monocytes (%) (Auto) 6 % (0-9) Eosinophils (%) (Auto) 4 % (0-3) Basophils (%) (Auto) 0 % (0-3) Neutrophils # (Auto) 2.0 x10^3uL (1.8-7.7) Lymphocytes # (Auto) 0.1 x10^3/uL (1.0-4.8) Monocytes # (Auto) 0.1 x10^3/uL (0.0-1.1) Eosinophils # (Auto) 0.1 x10^3/uL (0.0-0.7) Basophils # (Auto) 0.0 x10^3/uL (0.0-0.2) Sodium Level 138 mmol/L (136-145) Potassium Level 3.3 mmol/L (3.5-5.1) Chloride Level 103 mmol/L (98-107) Carbon Dioxide Level 27 mmol/L (21-32) Anion Gap 8 (6-14) Blood Urea Nitrogen 10 mg/dL (7-20) Creatinine 0.7 mg/dL (0.6-1.0) Estimated GFR (Cockcroft-Gault) 83.0 Glucose Level 109 mg/dL (70-99) Calcium Level 8.0 mg/dL (8.5-10.1) Creatine Kinase 43 U/L (26-192) Vitamin B12 Level 212 pg/mL (247-911) 25-Hydroxy Vitamin D Total 29.0 ng/mL (30-100) ROOSEVELT STEARNS MD Sep 07, 2017 16:06
--- NOTE | 2017-09-07 18:03 | PDOC2 ---
NEUROLOGY CONSULT Date of Admission Date of Admission DATE: 09/07/17 TIME: 17:43 Reason for Consult Reason for Consult: IMPRESSION: Visual disturbances on 09/06. TIA? Headache, migraine. Neck pain. Non-Hodgkin's lymphoma-Mantle cell HTN Hypocalcemia. Vit B12 deficiency. Vit D insufficiency. No evidence of acute CVA this time. No evidence of C-cord disease. RECOMMENDATIONS/PLAN: Pain control for headaches. Persantine 25 mg daily, patient was allergic to ASA. Carotid A US + Doppler. Echo Fasting lipid panel in a.m. Vit B12 1000 mcg Inj daily, change to 1 mg PO daily at discharge. Vit D 3 1000 units daily. Calcium 500 mg bid. 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 No sensory or motor deficits. PAST MEDICAL HISTORY: Anxiety, Asthma, Bipolar, Cancer, Constipation, Depression, GERD, Hypertension, IBS, Migraines, Non Hodgkins Lymphoma- Mantle Cell PAST SURGERY HISTORY:Past Cholecystectomy, Tonsillectomy, X3 D&C,GROIN BX,BONE MARROW BX,PORT-A-CATH PLACEMENT RIGHT CHEST FAMILY HISTORY: Heart disease. SOCIAL HISTORY: She is , living with children and no toxic habits. ALLERGIES: SULFA, AMOXICILLIN, ASPIRIN, BUTALBITAL, CAFFEINE, AND VANCOMYCIN. MEDICATIONS: Refer to MAR REVIEW OF SYSTEMS: Constitutional: No malnutrition, cachexia. Head: No traumatic brain or head injury. Skin: No edema, or rash. Ear: No infection, tinnitus. Eyes: No vision loss or color blindness. Nose: No bleeding or purulent discharges. Hearing: No hearing decrease. Neck: No injury. Breast: No history of cancer, masses,or discharges. Cardiac: HTN. Pulmonary: No COPD. GI: No GI ulcer, GI bleeding. Urinary/genital: UTI. Endocrinologic: No cousin face, craniofacial dysmorphism, polydactyly. Skeletomuscular: No muscular atrophy, deformity. Neurological: see HP. Psychiatric: Denies drug use/abuse. Otherwise, not [id number] review of systems. PHYSICAL EXAMINATION: General appearance is in anxious. HEENT: Normocephalic and nontraumatic. Eyes, nose, ears, and throat are unremarkable. Neck is supple. No lymphadenopathy. No crepitus. Cardiovascular: S1, S2, regular rate and rhythm. Pulmonary: Clear to auscultation bilaterally. Abdomen: Bowel sounds are positive. Abdomen is soft, nontender, and nondistended. Extremities: No rash, lesions, or edema. No restriction of range of motion NEUROLOGICAL EXAMINATION: Alert Oriented to time, place and person. PERRL. EOMI. CN: no focal findings. Muscle tone: within normal. Muscle strength: 5 DTR: 2 Plantar reflex: Flexor response bilaterally Gait: not examined in bed. Sensory exam: no abnormal findings. No cerebellar signs elicited. F-T-N test accurate. Current Medications Current Medications Current Medications Fentanyl Citrate (Fentanyl 2ml Vial) 50 mcg 1X ONCE IV Last administered on 17:09; Start 09/06/17 at 16:45; Stop 09/06/17 at 16:46; Status DC Iohexol (Omnipaque 300 Mg/ml) 75 ml 1X ONCE IV ; Start 09/06/17 at 16:45; Stop 09/06/17 at 16:46; Status DC Info (Do NOT chart on this entry -- for MONITORING) 1 each PRN DAILY PRN MC SEE COMMENTS; Start 09/06/17 at 16:45; Stop 09/08/17 at 16:44 Ondansetron HCl (Zofran) 4 mg PRN Q8HRS PRN IV NAUSEA/VOMITING; Start at 18:45; Stop 09/07/17 at 18:44 Fentanyl Citrate (Fentanyl 2ml Vial) 50 mcg PRN Q1HR PRN IV PAIN Last administered on 09/06/17 19:09; Start 09/06/17 at 18:45; Stop 09/07/17 at 18 :44 Gadobutrol (Gadavist) 5 mmol 1X ONCE IV Last administered on 09/06/17 20:11 ; Start 09/06/17 at 19:30; Stop 09/06/17 at 19:31; Status DC Carvedilol (Coreg) 6.25 mg BIDWMEALS PO Last administered on 09/07/17 17:25; Start 09/07/17 at 08:00 Cetirizine HCl (ZyrTEC) 10 mg DAILY PO Last administered on 09/07/17 08:39; Start 09/07/17 at 09:00 Clonazepam (KlonoPIN) 0.5 mg BID92 PO Last administered on 09/07/17 17:21; Start 09/07/17 at 09:00 Clonazepam (KlonoPIN) 1 mg QHS PO Last administered on 09/07/17 00:00; Start 09/06/17 at 23:30 Dicyclomine HCl (Bentyl) 10 mg TID PO Last administered on 09/07/17 08:39; Start 09/07/17 at 09:00 Oxcarbazepine (Trileptal) 450 mg QHS PO Last administered on 09/07/17 00:01; Start 09/06/17 at 23:30 Non-Formulary Medication 2 puff QID INH ; Start 09/07/17 at 09:00; Status UNV Duloxetine HCl (Cymbalta) 90 mg DAILY PO Last administered on 09/07/17 08:40 ; Start 09/07/17 at 09:00 Hyoscyamine (Anaspaz) 0.125 mg PRN Q4HRS PRN PO NAUSEA/VOMITING -GIVE MED SL; Start 09/06/17 at 23:15 Losartan Potassium (Cozaar) 100 mg DAILY PO Last administered on 09/07/17 08: 41; Start 09/07/17 at 09:00 Zolpidem Tartrate (Ambien) 5 mg QHS PO Last administered on 09/07/17 00:00; Start 09/06/17 at 23:45 Non-Formulary Medication 2 puff BID94 IH ; Start 09/07/17 at 09:00; Status UNV Pantoprazole Sodium (Protonix) 40 mg BIDAC PO Last administered on 09/07/17 17:13; Start 09/07/17 at 07:30 Ondansetron HCl (Zofran Odt) 4 mg Q8HRS PO ; Start 09/07/17 at 06:00 Oxcarbazepine (Trileptal) 300 mg DAILY08 PO Last administered on 09/07/17 08: 41; Start 09/07/17 at 08:00 Potassium Chloride (Klor-Con) 20 meq DAILY08 PO Last administered on 08:40; Start 09/07/17 at 08:00 Non-Formulary Medication 2.5 mg PRN Q2HR PRN NEB WHEEZING; Start 09/06/17 at 23:15; Status UNV Albuterol Sulfate (Ventolin Neb Soln) 2.5 mg PRN Q2HRS PRN NEB SHORTNESS OF BREATH; Start 09/07/17 at 01:00 Budesonide (Pulmicort) 0.5 mg RTBID NEB Last administered on 09/07/17 08:57; Start 09/07/17 at 08:00 Albuterol Sulfate (Ventolin Neb Soln) 2.5 mg RTQID NEB Last administered on 16:18; Start 09/07/17 at 08:00 Active Scripts Active Potassium Chloride 20 Meq Tablet.er 20 Meq PO DAILY 7 Days Ventolin Hfa Inhaler (Albuterol Sulfate) 18 Gm Hfa.aer.ad 2 Puff INH QID Bentyl (Dicyclomine Hcl) 10 Mg Capsule 10 Mg PO TID [Albuterol Sulfate] 2.5 MG/3 ML Nebu 2.5 Mg NEB PRN Q2HR PRN Reported Ventolin Hfa Inhaler (Albuterol Sulfate) 18 Gm Hfa.aer.ad 2 Puff INH BID Culturelle (Lactobacillus Rhamnosus Gg) 1 Each Capsule 1 Each PO DAILY Multivitamins (Multivitamin) 1 Each Tablet 1 Tab PO DAILY Melatonin 3 Mg Tablet 10 Mg PO QHS Coreg (Carvedilol) 6.25 Mg Tablet 1 Tab PO BID Vitamin C (Ascorbic Acid) 500 Mg Tab.chew 500 Mg PO DAILY Calcium 600 + Vit D 400 Softgl (Calcium Carbonate/Vitamin D3) 1 Each Capsule 1 Each PO DAILY Hyoscyamine Sulfate 0.125 Mg Tab.subl 0.125 Mg SL PRN Q4-6HRS PRN Cetirizine Hcl 10 Mg Tablet 1 Tab PO DAILY Cozaar (Losartan Potassium) 100 Mg Tablet 100 Mg PO DAILY Zofran (Ondansetron Hcl) 4 Mg Tablet 1 Tab PO Q8HRS Dulera 200 Mcg/5 Mcg Inhaler (Mometasone/Formoterol) 13 Gm Hfa.aer.ad 2 Puff IH BID94 Alendronate Sodium 70 Mg Tablet 1 Tab PO WEEKLY Omeprazole 40 Mg Capsule.dr 40 Mg PO BID Clonazepam 1 Mg Tablet 1 Tab PO QHS Clonazepam 0.5 Mg Tablet 0.5 Mg PO BID92 Trileptal (Oxcarbazepine) 300 Mg Tablet 450 Mg PO QHS Trileptal (Oxcarbazepine) 150 Mg Tablet 2 Tab PO DAILY08 Cymbalta (Duloxetine Hcl) 60 Mg Capsule.dr 90 Mg PO DAILY Allergies Allergies: Coded Allergies: Sulfa (Sulfonamide Antibiotics) (Verified Allergy, Severe, HIVES, 05/04/15) amoxicillin (Verified Allergy, Severe, N/V,HIVES, 05/04/15) aspirin (Verified Allergy, Severe, RASH ALL OVER BODY, 05/07/15) butalbital (Verified Allergy, Severe, RASH ALL OVER BODY, 05/07/15) caffeine (Verified Allergy, Severe, RASH ALL OVER BODY, 05/07/15) vancomycin (Verified Allergy, Intermediate, Rash, 10/15/15) Vitals VITALS Vital Signs Date Time Temp Pulse Resp B/P (MAP) Pulse Ox O2 Delivery O2 Flow Rate FiO2 09/07/17 17:25 93 131/65 09/07/17 16:24 Room Air 09/07/17 14:59 98.2 16 100 98.2 Labs Labs Laboratory Tests Test 09/06/17 15:45 09/06/17 17:10 09/07/17 06:50 White Blood Count 2.6 x10^3/uL (4.0-11.0) 2.4 x10^3/uL (4.0-11.0) Red Blood Count 3.72 x10^6/uL (3.50-5.40) 3.99 x10^6/uL (3.50-5.40) Hemoglobin 11.5 g/dL (12.0-15.5) 12.0 g/dL (12.0-15.5) Hematocrit 33.9 % (36.0-47.0) 36.0 % (36.0-47.0) Mean Corpuscular Volume 91 fL (79-100) 90 fL (79-100) Mean Corpuscular Hemoglobin 31 pg (25-35) 30 pg (25-35) Mean Corpuscular Hemoglobin Concent 34 g/dL (31-37) 34 g/dL (31-37) Red Cell Distribution Width 13.8 % (11.5-14.5) 13.8 % (11.5-14.5) Platelet Count 212 x10^3/uL (140-400) 201 x10^3/uL (140-400) Neutrophils (%) (Auto) 68 % (31-73) 84 % (31-73) Lymphocytes (%) (Auto) 16 % (24-48) 6 % (24-48) Monocytes (%) (Auto) 13 % (0-9) 6 % (0-9) Eosinophils (%) (Auto) 2 % (0-3) 4 % (0-3) Basophils (%) (Auto) 1 % (0-3) 0 % (0-3) Neutrophils # (Auto) 1.8 x10^3uL (1.8-7.7) 2.0 x10^3uL (1.8-7.7) Lymphocytes # (Auto) 0.4 x10^3/uL (1.0-4.8) 0.1 x10^3/uL (1.0-4.8) Monocytes # (Auto) 0.3 x10^3/uL (0.0-1.1) 0.1 x10^3/uL (0.0-1.1) Eosinophils # (Auto) 0.1 x10^3/uL (0.0-0.7) 0.1 x10^3/uL (0.0-0.7) Basophils # (Auto) 0.0 x10^3/uL (0.0-0.2) 0.0 x10^3/uL (0.0-0.2) Segmented Neutrophils % 73 % (35-66) Band Neutrophils % 2 % (0-9) Lymphocytes % 13 % (24-48) Monocytes % 10 % (0-10) Eosinophils % 2 % (0-5) Platelet Estimate Adequate (ADEQUATE) Large Platelets Occ Polychromasia Slight Target Cells Occ Ovalocytes Occ Sodium Level 140 mmol/L (136-145) 138 mmol/L (136-145) Potassium Level 3.9 mmol/L (3.5-5.1) 3.3 mmol/L (3.5-5.1) Chloride Level 103 mmol/L (98-107) 103 mmol/L (98-107) Carbon Dioxide Level 25 mmol/L (21-32) 27 mmol/L (21-32) Anion Gap 12 (6-14) 8 (6-14) Blood Urea Nitrogen 10 mg/dL (7-20) 10 mg/dL (7-20) Creatinine 0.5 mg/dL (0.6-1.0) 0.7 mg/dL (0.6-1.0) Estimated GFR (Cockcroft-Gault) 122.3 83.0 BUN/Creatinine Ratio 20 (6-20) Glucose Level 89 mg/dL (70-99) 109 mg/dL (70-99) Calcium Level 8.2 mg/dL (8.5-10.1) 8.0 mg/dL (8.5-10.1) Total Bilirubin 0.2 mg/dL (0.2-1.0) Aspartate Amino Transf (AST/SGOT) 17 U/L (15-37) Alanine Aminotransferase (ALT/SGPT) 32 U/L (14-59) Alkaline Phosphatase 83 U/L (46-116) Troponin I Quantitative < 0.017 ng/mL (0.000-0.055) Total Protein 5.6 g/dL (6.4-8.2) Albumin 3.5 g/dL (3.4-5.0) Albumin/Globulin Ratio 1.7 (1.0-1.7) Urine Color Yellow Urine Clarity Clear Urine pH 8.5 Urine Specific [place] 1.015 Urine Protein Negative mg/dL (NEG-TRACE) Urine Glucose (UA) Negative mg/dL (NEG) Urine Ketones (Stick) Negative mg/dL (NEG) Urine Blood Negative (NEG) Urine Nitrite Negative (NEG) Urine Bilirubin Negative (NEG) Urine Urobilinogen Dipstick 0.2 mg/dL (0.2 mg/dL) Urine Leukocyte Esterase Negative (NEG) Urine RBC 0 /HPF (0-2) Urine WBC Occ /HPF (0-4) Urine Squamous Epithelial Cells Occ /LPF Urine Bacteria 0 /HPF (0-FEW) Creatine Kinase 43 U/L (26-192) Vitamin B12 Level 212 pg/mL (247-911) 25-Hydroxy Vitamin D Total 29.0 ng/mL (30-100) Laboratory Tests Test 09/07/17 06:50 White Blood Count 2.4 x10^3/uL (4.0-11.0) Red Blood Count 3.99 x10^6/uL (3.50-5.40) Hemoglobin 12.0 g/dL (12.0-15.5) Hematocrit 36.0 % (36.0-47.0) Mean Corpuscular Volume 90 fL (79-100) Mean Corpuscular Hemoglobin 30 pg (25-35) Mean Corpuscular Hemoglobin Concent 34 g/dL (31-37) Red Cell Distribution Width 13.8 % (11.5-14.5) Platelet Count 201 x10^3/uL (140-400) Neutrophils (%) (Auto) 84 % (31-73) Lymphocytes (%) (Auto) 6 % (24-48) Monocytes (%) (Auto) 6 % (0-9) Eosinophils (%) (Auto) 4 % (0-3) Basophils (%) (Auto) 0 % (0-3) Neutrophils # (Auto) 2.0 x10^3uL (1.8-7.7) Lymphocytes # (Auto) 0.1 x10^3/uL (1.0-4.8) Monocytes # (Auto) 0.1 x10^3/uL (0.0-1.1) Eosinophils # (Auto) 0.1 x10^3/uL (0.0-0.7) Basophils # (Auto) 0.0 x10^3/uL (0.0-0.2) Sodium Level 138 mmol/L (136-145) Potassium Level 3.3 mmol/L (3.5-5.1) Chloride Level 103 mmol/L (98-107) Carbon Dioxide Level 27 mmol/L (21-32) Anion Gap 8 (6-14) Blood Urea Nitrogen 10 mg/dL (7-20) Creatinine 0.7 mg/dL (0.6-1.0) Estimated GFR (Cockcroft-Gault) 83.0 Glucose Level 109 mg/dL (70-99) Calcium Level 8.0 mg/dL (8.5-10.1) Creatine Kinase 43 U/L (26-192) Vitamin B12 Level 212 pg/mL (247-911) 25-Hydroxy Vitamin D Total 29.0 ng/mL (30-100) ROSCOE BANGURA MD Sep 07, 2017 18:03
[2017-09-07 19:00] VITALS: BP 122/75
[2017-09-07] MEDS: DIPYRIDAMOLE 25 MG TABLET. PO SCH (19:00)
[2017-09-07] MEDS: CYANOCOBALAMIN (VITAMIN B-12) 1,000 MCG/ML VIAL IM SCH (19:00)
[2017-09-07] MEDS: clonazePAM 1 MG TABLET PO SCH ×2 (21:00)
[2017-09-07] MEDS: ZOLPIDEM 5 MG TABLET. PO SCH ×2 (21:00)
[2017-09-07] MEDS: CALCIUM CARBONATE 500 MG TABLET PO SCH (21:47)
[2017-09-07] MEDS: CHOLECALCIFEROL (VITAMIN D3) 1,000 UNIT TABLET PO SCH (21:50)
[2017-09-07 23:00] VITALS: BP 119/67
[2017-09-08 03:00] VITALS: BP 115/53
[2017-09-08] MEDS: ONDANSETRON ODT 4 MG TAB.RAPDIS. PO SCH ×3 (06:00→21:02)
[2017-09-08 07:00] VITALS: BP 115/73
[2017-09-08 07:23] LABS: CHOLESTEROL/HDL RATIO 2.5
[2017-09-08] MEDS: BUDESONIDE 0.5 MG/2 ML NEBU. NEB SCH ×2 (07:48→19:29)
[2017-09-08] MEDS: ALBUTEROL SULFATE 2.5 MG/3 ML NEBU. NEB SCH ×4 (07:48→19:29)
[2017-09-08] MEDS: POTASSIUM CHLORIDE 20 MEQ TABLET.ER. PO SCH (08:30)
[2017-09-08] MEDS: OXcarbazepine 300 MG TABLET PO SCH ×2 (08:30→20:18)
[2017-09-08] MEDS: DICYCLOMINE HCL 10 MG CAPSULE PO SCH ×3 (08:30→20:16)
[2017-09-08] MEDS: DULoxetine HCL 30 MG CAPSULE.DR PO SCH (08:31)
[2017-09-08] MEDS: CHOLECALCIFEROL (VITAMIN D3) 1,000 UNIT TABLET PO SCH (08:31)
[2017-09-08] MEDS: CETIRIZINE HCL 10 MG TABLET. PO SCH (08:31)
[2017-09-08] MEDS: LOSARTAN POTASSIUM 50 MG TABLET. PO SCH (08:31)
[2017-09-08] MEDS: PANTOPRAZOLE 40 MG TABLET.DR. PO SCH ×2 (08:31→16:40)
[2017-09-08] MEDS: CALCIUM CARBONATE 500 MG TABLET PO SCH ×2 (08:31→16:40)
[2017-09-08] MEDS: DIPYRIDAMOLE 25 MG TABLET. PO SCH ×3 (08:31→11:26)
[2017-09-08] MEDS: CARVEDILOL 6.25 MG TABLET. PO SCH ×2 (08:32→16:40)
[2017-09-08] MEDS: CYANOCOBALAMIN (VITAMIN B-12) 1,000 MCG/ML VIAL IM SCH (08:33)
--- NOTE | 2017-09-08 09:31 | RAD ---
Bilateral carotid Doppler 09/07/2017 INDICATION: TIA possible COMPARISON: CTA head and neck 09/06/2017. TECHNIQUE: Color, grayscale and doppler ultrasound images obtained of the carotid system bilaterally. Percent stenosis is estimated using criteria that correlates with NASCET methodology. FINDINGS: Peak systolic velocities are as follows in cm/s: Right Carotid System: Mid CCA: 61 cm/s Mid ICA: 51 cm/s Mid ICA EDV: 15 cm/s ECA: 62 cm/s ICA/CCA Ratio 0.8 Left Carotid System: Mid CCA: 77 Distal ICA: 115 cm/s Distal ICA EDV: 44 cm/s ECA: 78 cm/s ICA/CCA Ratio 1.4 Vertebral arteries are antegrade bilaterally. IMPRESSION: 1. No hemodynamically significant stenosis of the internal carotid arteries bilaterally.
[2017-09-08] MEDS ORDERED: diphenhydrAMINE HCL 25 MG CAPSULE PO ONE (10:30)
--- NOTE | 2017-09-08 10:31 | PDOC ---
PROGRESS NOTES Chief Complaint Chief Complaint severe headache 1. Expressive aphasia: resolved by the time she arrived in ER. MRI and CTA are negative. Dr Suggs's following 2. Cervical DJD: known. suspect etiology of neck pain and arm paresthesias 3. Flushed upper torso and face: poss drug/contrast dye ASE. declines benadryl. ibuprofen PRN 4. weakness and debility 5. vit d and B12 deficiency 6. Non-Hodgkin's lymphoma-Mantle cell lymphoma 7. HTN 8. Hypocalcemia. History of Present Illness History of Present Illness feels better, still flushed and red, is very concerned with flushing in face headache better still weakness she had a few questions on lovenox, proph meds, plan, Persantine 25 mg daily, patient was allergic to ASA. Vitals Vitals Vital Signs Date Time Temp Pulse Resp B/P (MAP) Pulse Ox O2 Delivery O2 Flow Rate FiO2 09/08/17 08:32 87 115/73 09/08/17 08:00 Room Air 09/08/17 07:45 95 09/08/17 07:00 97.3 16 97.3 Physical Exam Physical Exam flushed General: Alert, Oriented X3, Cooperative, No acute distress Heart: Regular rate Lungs: Clear Abdomen: Normal bowel sounds, No tenderness Extremities: No clubbing Skin: No rashes, Other (facial flushing) Labs LABS Laboratory Tests Test 09/08/17 06:50 Erythrocyte Sedimentation Rate 6 (0-25) Triglycerides Level 92 mg/dL (0-150) Cholesterol Level 108 mg/dL (0-200) LDL Cholesterol, Calculated 46 mg/dL (0-100) VLDL Cholesterol, Calculated 18 mg/dL (0-40) Non-HDL Cholesterol Calculated 64 mg/dL (0-129) HDL Cholesterol 44 mg/dL (40-60) Cholesterol/HDL Ratio 2.5 Review of Systems Review of Systems no n.v.d Assessment and Plan Assessmemt and Plan Problems Medical Problems: (1) Headache Status: Acute Problems: Comment Review of Relevant I have reviewed the following items sola (where applicable) has been applied. Labs Laboratory Tests Test 09/06/17 15:45 09/06/17 17:10 09/07/17 06:50 09/08/17 06:50 White Blood Count 2.6 x10^3/uL (4.0-11.0) 2.4 x10^3/uL (4.0-11.0) Red Blood Count 3.72 x10^6/uL (3.50-5.40) 3.99 x10^6/uL (3.50-5.40) Hemoglobin 11.5 g/dL (12.0-15.5) 12.0 g/dL (12.0-15.5) Hematocrit 33.9 % (36.0-47.0) 36.0 % (36.0-47.0) Mean Corpuscular Volume 91 fL (79-100) 90 fL (79-100) Mean Corpuscular Hemoglobin 31 pg (25-35) 30 pg (25-35) Mean Corpuscular Hemoglobin Concent 34 g/dL (31-37) 34 g/dL (31-37) Red Cell Distribution Width 13.8 % (11.5-14.5) 13.8 % (11.5-14.5) Platelet Count 212 x10^3/uL (140-400) 201 x10^3/uL (140-400) Neutrophils (%) (Auto) 68 % (31-73) 84 % (31-73) Lymphocytes (%) (Auto) 16 % (24-48) 6 % (24-48) Monocytes (%) (Auto) 13 % (0-9) 6 % (0-9) Eosinophils (%) (Auto) 2 % (0-3) 4 % (0-3) Basophils (%) (Auto) 1 % (0-3) 0 % (0-3) Neutrophils # (Auto) 1.8 x10^3uL (1.8-7.7) 2.0 x10^3uL (1.8-7.7) Lymphocytes # (Auto) 0.4 x10^3/uL (1.0-4.8) 0.1 x10^3/uL (1.0-4.8) Monocytes # (Auto) 0.3 x10^3/uL (0.0-1.1) 0.1 x10^3/uL (0.0-1.1) Eosinophils # (Auto) 0.1 x10^3/uL (0.0-0.7) 0.1 x10^3/uL (0.0-0.7) Basophils # (Auto) 0.0 x10^3/uL (0.0-0.2) 0.0 x10^3/uL (0.0-0.2) Segmented Neutrophils % 73 % (35-66) Band Neutrophils % 2 % (0-9) Lymphocytes % 13 % (24-48) Monocytes % 10 % (0-10) Eosinophils % 2 % (0-5) Platelet Estimate Adequate (ADEQUATE) Large Platelets Occ Polychromasia Slight Target Cells Occ Ovalocytes Occ Sodium Level 140 mmol/L (136-145) 138 mmol/L (136-145) Potassium Level 3.9 mmol/L (3.5-5.1) 3.3 mmol/L (3.5-5.1) Chloride Level 103 mmol/L (98-107) 103 mmol/L (98-107) Carbon Dioxide Level 25 mmol/L (21-32) 27 mmol/L (21-32) Anion Gap 12 (6-14) 8 (6-14) Blood Urea Nitrogen 10 mg/dL (7-20) 10 mg/dL (7-20) Creatinine 0.5 mg/dL (0.6-1.0) 0.7 mg/dL (0.6-1.0) Estimated GFR (Cockcroft-Gault) 122.3 83.0 BUN/Creatinine Ratio 20 (6-20) Glucose Level 89 mg/dL (70-99) 109 mg/dL (70-99) Calcium Level 8.2 mg/dL (8.5-10.1) 8.0 mg/dL (8.5-10.1) Total Bilirubin 0.2 mg/dL (0.2-1.0) Aspartate Amino Transf (AST/SGOT) 17 U/L (15-37) Alanine Aminotransferase (ALT/SGPT) 32 U/L (14-59) Alkaline Phosphatase 83 U/L (46-116) Troponin I Quantitative < 0.017 ng/mL (0.000-0.055) Total Protein 5.6 g/dL (6.4-8.2) Albumin 3.5 g/dL (3.4-5.0) Albumin/Globulin Ratio 1.7 (1.0-1.7) Urine Color Yellow Urine Clarity Clear Urine pH 8.5 Urine Specific [place] 1.015 Urine Protein Negative mg/dL (NEG-TRACE) Urine Glucose (UA) Negative mg/dL (NEG) Urine Ketones (Stick) Negative mg/dL (NEG) Urine Blood Negative (NEG) Urine Nitrite Negative (NEG) Urine Bilirubin Negative (NEG) Urine Urobilinogen Dipstick 0.2 mg/dL (0.2 mg/dL) Urine Leukocyte Esterase Negative (NEG) Urine RBC 0 /HPF (0-2) Urine WBC Occ /HPF (0-4) Urine Squamous Epithelial Cells Occ /LPF Urine Bacteria 0 /HPF (0-FEW) Creatine Kinase 43 U/L (26-192) Vitamin B12 Level 212 pg/mL (247-911) 25-Hydroxy Vitamin D Total 29.0 ng/mL (30-100) Erythrocyte Sedimentation Rate 6 (0-25) Triglycerides Level 92 mg/dL (0-150) Cholesterol Level 108 mg/dL (0-200) LDL Cholesterol, Calculated 46 mg/dL (0-100) VLDL Cholesterol, Calculated 18 mg/dL (0-40) Non-HDL Cholesterol Calculated 64 mg/dL (0-129) HDL Cholesterol 44 mg/dL (40-60) Cholesterol/HDL Ratio 2.5 Laboratory Tests Test 09/08/17 06:50 Erythrocyte Sedimentation Rate 6 (0-25) Triglycerides Level 92 mg/dL (0-150) Cholesterol Level 108 mg/dL (0-200) LDL Cholesterol, Calculated 46 mg/dL (0-100) VLDL Cholesterol, Calculated 18 mg/dL (0-40) Non-HDL Cholesterol Calculated 64 mg/dL (0-129) HDL Cholesterol 44 mg/dL (40-60) Cholesterol/HDL Ratio 2.5 Medications Current Medications Fentanyl Citrate (Fentanyl 2ml Vial) 50 mcg 1X ONCE IV Last administered on t 17:09; Start 09/06/17 at 16:45; Stop 09/06/17 at 16:46; Status DC Iohexol (Omnipaque 300 Mg/ml) 75 ml 1X ONCE IV ; Start 09/06/17 at 16:45; Stop 09/06/17 at 16:46; Status DC Info (Do NOT chart on this entry -- for MONITORING) 1 each PRN DAILY PRN MC SEE COMMENTS; Start 09/06/17 at 16:45; Stop 09/08/17 at 16:44 Ondansetron HCl (Zofran) 4 mg PRN Q8HRS PRN IV NAUSEA/VOMITING; Start at 18:45; Stop 09/07/17 at 18:44; Status DC Fentanyl Citrate (Fentanyl 2ml Vial) 50 mcg PRN Q1HR PRN IV PAIN Last administered on 09/06/17 19:09; Start 09/06/17 at 18:45; Stop 09/07/17 at 18 :44; Status DC Gadobutrol (Gadavist) 5 mmol 1X ONCE IV Last administered on 09/06/17 20:11 ; Start 09/06/17 at 19:30; Stop 09/06/17 at 19:31; Status DC Carvedilol (Coreg) 6.25 mg BIDWMEALS PO Last administered on 09/08/17 08:32; Start 09/07/17 at 08:00 Cetirizine HCl (ZyrTEC) 10 mg DAILY PO Last administered on 09/08/17 08:31; Start 09/07/17 at 09:00 Clonazepam (KlonoPIN) 0.5 mg BID92 PO Last administered on 09/07/17 21:50; Start 09/07/17 at 09:00 Clonazepam (KlonoPIN) 1 mg QHS PO Last administered on 09/07/17 00:00; Start 09/06/17 at 23:30 Dicyclomine HCl (Bentyl) 10 mg TID PO Last administered on 09/08/17 08:30; Start 09/07/17 at 09:00 Oxcarbazepine (Trileptal) 450 mg QHS PO Last administered on 09/07/17 21:52; Start 09/06/17 at 23:30 Non-Formulary Medication 2 puff QID INH ; Start 09/07/17 at 09:00; Status UNV Duloxetine HCl (Cymbalta) 90 mg DAILY PO Last administered on 09/08/17 08:31 ; Start 09/07/17 at 09:00 Hyoscyamine (Anaspaz) 0.125 mg PRN Q4HRS PRN PO NAUSEA/VOMITING -GIVE MED SL; Start 09/06/17 at 23:15 Losartan Potassium (Cozaar) 100 mg DAILY PO Last administered on 09/08/17 08: 31; Start 09/07/17 at 09:00 Zolpidem Tartrate (Ambien) 5 mg QHS PO Last administered on 09/07/17 00:00; Start 09/06/17 at 23:45 Non-Formulary Medication 2 puff BID94 IH ; Start 09/07/17 at 09:00; Status UNV Pantoprazole Sodium (Protonix) 40 mg BIDAC PO Last administered on 09/08/17 08:31; Start 09/07/17 at 07:30 Ondansetron HCl (Zofran Odt) 4 mg Q8HRS PO ; Start 09/07/17 at 06:00 Oxcarbazepine (Trileptal) 300 mg DAILY08 PO Last administered on 09/08/17 08: 30; Start 09/07/17 at 08:00 Potassium Chloride (Klor-Con) 20 meq DAILY08 PO Last administered on 08:30; Start 09/07/17 at 08:00 Non-Formulary Medication 2.5 mg PRN Q2HR PRN NEB WHEEZING; Start 09/06/17 at 23:15; Status UNV Albuterol Sulfate (Ventolin Neb Soln) 2.5 mg PRN Q2HRS PRN NEB SHORTNESS OF BREATH; Start 09/07/17 at 01:00 Budesonide (Pulmicort) 0.5 mg RTBID NEB Last administered on 09/08/17 07:48; Start 09/07/17 at 08:00 Albuterol Sulfate (Ventolin Neb Soln) 2.5 mg RTQID NEB Last administered on 07:48; Start 09/07/17 at 08:00 Dipyridamole (Persantine) 25 mg DAILY PO ; Start 09/07/17 at 19:00 Cyanocobalamin (Vitamin B-12) 1,000 mcg DAILY IM Last administered on 08:33; Start 09/07/17 at 19:00 Vitamin D (Vitamin D3) 1,000 unit DAILY PO Last administered on 09/08/17 08: 31; Start 09/07/17 at 19:00 Calcium Carbonate/ Glycine (Oscal) 500 mg BIDWMEALS PO Last administered on 08:31; Start 09/07/17 at 18:30 Active Scripts Active Potassium Chloride 20 Meq Tablet.er 20 Meq PO DAILY 7 Days Ventolin Hfa Inhaler (Albuterol Sulfate) 18 Gm Hfa.aer.ad 2 Puff INH QID Bentyl (Dicyclomine Hcl) 10 Mg Capsule 10 Mg PO TID [Albuterol Sulfate] 2.5 MG/3 ML Nebu 2.5 Mg NEB PRN Q2HR PRN Reported Ventolin Hfa Inhaler (Albuterol Sulfate) 18 Gm Hfa.aer.ad 2 Puff INH BID Culturelle (Lactobacillus Rhamnosus Gg) 1 Each Capsule 1 Each PO DAILY Multivitamins (Multivitamin) 1 Each Tablet 1 Tab PO DAILY Melatonin 3 Mg Tablet 10 Mg PO QHS Coreg (Carvedilol) 6.25 Mg Tablet 1 Tab PO BID Vitamin C (Ascorbic Acid) 500 Mg Tab.chew 500 Mg PO DAILY Calcium 600 + Vit D 400 Softgl (Calcium Carbonate/Vitamin D3) 1 Each Capsule 1 Each PO DAILY Hyoscyamine Sulfate 0.125 Mg Tab.subl 0.125 Mg SL PRN Q4-6HRS PRN Cetirizine Hcl 10 Mg Tablet 1 Tab PO DAILY Cozaar (Losartan Potassium) 100 Mg Tablet 100 Mg PO DAILY Zofran (Ondansetron Hcl) 4 Mg Tablet 1 Tab PO Q8HRS Dulera 200 Mcg/5 Mcg Inhaler (Mometasone/Formoterol) 13 Gm Hfa.aer.ad 2 Puff IH BID94 Alendronate Sodium 70 Mg Tablet 1 Tab PO WEEKLY Omeprazole 40 Mg Capsule. 40 Mg PO BID Clonazepam 1 Mg Tablet 1 Tab PO QHS Clonazepam 0.5 Mg Tablet 0.5 Mg PO BID92 Trileptal (Oxcarbazepine) 300 Mg Tablet 450 Mg PO QHS Trileptal (Oxcarbazepine) 150 Mg Tablet 2 Tab PO DAILY08 Cymbalta (Duloxetine Hcl) 60 Mg Capsule. 90 Mg PO DAILY Vitals/I & O Vital Sign - Last 24 Hours 09/07/17 09/07/17 09/07/17 09/07/17 10:58 11:48 14:59 16:24 Temp 98.4 98.2 98.4 98.2 Pulse 94 92 Resp 17 16 B/P (MAP) 128/61 (83) 120/64 (82) Pulse Ox 100 100 O2 Delivery Room Air Room Air Room Air Room Air 12/15/17 12/15/17 12/15/17 12/15/17 17:25 19:00 20:00 20:01 Temp 98.4 98.4 Pulse 93 85 Resp 16 B/P (MAP) 131/65 122/75 (91) Pulse Ox 98 99 O2 Delivery Room Air Room Air Room Air 09/07/17 09/07/17 09/08/17 09/08/17 20:01 23:00 03:00 07:00 Temp 98.5 98.0 97.3 98.5 98.0 97.3 Pulse 85 99 87 Resp 18 18 16 B/P (MAP) 119/67 (84) 115/53 (73) 115/73 (87) Pulse Ox 99 92 95 99 O2 Delivery Room Air Room Air Room Air Room Air 09/08/17 09/08/17 09/08/17 09/08/17 07:45 08:00 08:31 08:32 Pulse 87 87 B/P (MAP) 115/73 115/73 Pulse Ox 95 O2 Delivery Room Air Room Air Intake and Output 09/07/17 09/07/17 09/08/17 15:00 23:00 07:00 Intake Total 200 ml 500 ml 100 ml Balance 200 ml 500 ml 100 ml YUE SIU MD Sep 08, 2017 10:31
[2017-09-08 11:00] VITALS: BP 101/45
[2017-09-08] MEDS ORDERED: ERGOCALCIFEROL (VITAMIN D2) 50,000 UNIT CAPSULE. PO SCH (11:00)
[2017-09-08] MEDS: VITAMIN B12,B9,B6 COMPLEX 1 TABLET. PO SCH (11:26)
[2017-09-08] MEDS: clonazePAM 0.5 MG TABLET PO SCH (13:14)
[2017-09-08 15:00] VITALS: BP 100/44
[2017-09-08 19:00] VITALS: BP 118/62
[2017-09-08] MEDS: clonazePAM 1 MG TABLET PO SCH (20:16)
[2017-09-08] MEDS: diphenhydrAMINE HCL 25 MG CAPSULE PO PRN (20:17)
[2017-09-08] MEDS: ZOLPIDEM 5 MG TABLET. PO SCH (20:18)
[2017-09-08 23:34] VITALS: BP 120/56
[2017-09-09 03:00] VITALS: BP 126/65
[2017-09-09] MEDS: ONDANSETRON ODT 4 MG TAB.RAPDIS. PO SCH ×3 (06:00→21:56)
[2017-09-09 07:00] VITALS: BP 125/52
[2017-09-09] MEDS: ALBUTEROL SULFATE 2.5 MG/3 ML NEBU. NEB SCH ×4 (09:06→20:08)
[2017-09-09] MEDS: BUDESONIDE 0.5 MG/2 ML NEBU. NEB SCH ×2 (09:06→20:08)
[2017-09-09] MEDS: PANTOPRAZOLE 40 MG TABLET.DR. PO SCH ×2 (09:31→17:49)
[2017-09-09] MEDS: LOSARTAN POTASSIUM 50 MG TABLET. PO SCH (09:32)
[2017-09-09] MEDS: VITAMIN B12,B9,B6 COMPLEX 1 TABLET. PO SCH (09:32)
[2017-09-09] MEDS: DIPYRIDAMOLE 25 MG TABLET. PO SCH (09:32)
[2017-09-09] MEDS: diphenhydrAMINE HCL 25 MG CAPSULE PO PRN ×3 (09:32→21:58)
[2017-09-09] MEDS: CARVEDILOL 6.25 MG TABLET. PO SCH ×2 (09:33→17:49)
[2017-09-09] MEDS: DICYCLOMINE HCL 10 MG CAPSULE PO SCH ×3 (09:33→21:00)
[2017-09-09] MEDS: clonazePAM 0.5 MG TABLET PO SCH ×2 (09:33→14:42)
[2017-09-09] MEDS: CETIRIZINE HCL 10 MG TABLET. PO SCH (09:33)
[2017-09-09] MEDS: OXcarbazepine 300 MG TABLET PO SCH ×2 (09:33→21:42)
[2017-09-09] MEDS: CALCIUM CARBONATE 500 MG TABLET PO SCH ×2 (09:34→17:48)
[2017-09-09] MEDS: POTASSIUM CHLORIDE 20 MEQ TABLET.ER. PO SCH (09:34)
[2017-09-09] MEDS: DULoxetine HCL 30 MG CAPSULE.DR PO SCH (09:34)
[2017-09-09] MEDS: CYANOCOBALAMIN (VITAMIN B-12) 1,000 MCG/ML VIAL IM SCH (09:43)
[2017-09-09 11:00] VITALS: BP 128/68
[2017-09-09] MEDS ORDERED: DIPHENHYDRAMINE/ZINC ACETATE 2%/0.1% TOPICAL CREAM 28GM TUBE. TP SCH (14:15)
[2017-09-09 15:00] VITALS: BP 137/61
[2017-09-09] MEDS: HYDROCORTISONE 1% TOPICAL OINTMENT 30GM TUBE. TP SCH ×3 (15:31→23:49)
--- NOTE | 2017-09-09 16:40 | PDOC ---
PROGRESS NOTES Chief Complaint Chief Complaint severe headache 1. Expressive aphasia: resolved, poss TIA, MRI and CTA are negative. 2. Cervical DJD: neck pain and arm paresthesias 3. Flushed upper torso and face: allergy NOS, try benadryl cream and hydrocort cream, 4. weakness and debility 5. vit d and B12 deficiency 6. Non-Hodgkin's lymphoma-Mantle cell lymphoma 7. HTN 8. Hypocalcemia. History of Present Illness History of Present Illness feels better, still flushed and red, is upset about not improving her skin, would like a derm consult, " I cant go home like this" headache better still weakness str improved overall, other issues still seem to get better, < headache Vitals Vitals Vital Signs Date Time Temp Pulse Resp B/P (MAP) Pulse Ox O2 Delivery O2 Flow Rate FiO2 09/09/17 13:25 Room Air 09/09/17 11:00 97.1 90 22 128/68 (88) 97 97.1 Physical Exam Physical Exam flushed General: Alert, Oriented X3, Cooperative, No acute distress Heart: Regular rate Lungs: Clear Abdomen: Normal bowel sounds, No tenderness Extremities: No clubbing Skin: No rashes, Other (facial flushing) Review of Systems Review of Systems erythema and rash to arms, back , appears histamine reaction, unsure of what med would be insult, Assessment and Plan Assessmemt and Plan Problems Medical Problems: (1) Headache Status: Acute Problems: Comment Review of Relevant I have reviewed the following items sola (where applicable) has been applied. Labs Laboratory Tests Test 09/08/17 06:50 Erythrocyte Sedimentation Rate 6 (0-25) Triglycerides Level 92 mg/dL (0-150) Cholesterol Level 108 mg/dL (0-200) LDL Cholesterol, Calculated 46 mg/dL (0-100) VLDL Cholesterol, Calculated 18 mg/dL (0-40) Non-HDL Cholesterol Calculated 64 mg/dL (0-129) HDL Cholesterol 44 mg/dL (40-60) Cholesterol/HDL Ratio 2.5 Medications Current Medications Fentanyl Citrate (Fentanyl 2ml Vial) 50 mcg 1X ONCE IV Last administered on t 17:09; Start 09/06/17 at 16:45; Stop 09/06/17 at 16:46; Status DC Iohexol (Omnipaque 300 Mg/ml) 75 ml 1X ONCE IV ; Start 09/06/17 at 16:45; Stop 09/06/17 at 16:46; Status DC Info (Do NOT chart on this entry -- for MONITORING) 1 each PRN DAILY PRN MC SEE COMMENTS; Start 09/06/17 at 16:45; Stop 09/08/17 at 16:44; Status DC Ondansetron HCl (Zofran) 4 mg PRN Q8HRS PRN IV NAUSEA/VOMITING; Start at 18:45; Stop 09/07/17 at 18:44; Status DC Fentanyl Citrate (Fentanyl 2ml Vial) 50 mcg PRN Q1HR PRN IV PAIN Last administered on 09/06/17 19:09; Start 09/06/17 at 18:45; Stop 09/07/17 at 18 :44; Status DC Gadobutrol (Gadavist) 5 mmol 1X ONCE IV Last administered on 09/06/17 20:11 ; Start 09/06/17 at 19:30; Stop 09/06/17 at 19:31; Status DC Carvedilol (Coreg) 6.25 mg BIDWMEALS PO Last administered on 09/09/17 09:33; Start 09/07/17 at 08:00 Cetirizine HCl (ZyrTEC) 10 mg DAILY PO Last administered on 09/09/17 09:33; Start 09/07/17 at 09:00 Clonazepam (KlonoPIN) 0.5 mg BID92 PO Last administered on 09/09/17 14:42; Start 09/07/17 at 09:00 Clonazepam (KlonoPIN) 1 mg QHS PO Last administered on 09/08/17 20:16; Start 09/06/17 at 23:30 Dicyclomine HCl (Bentyl) 10 mg TID PO Last administered on 09/09/17 14:42; Start 09/07/17 at 09:00 Oxcarbazepine (Trileptal) 450 mg QHS PO Last administered on 09/08/17 20:18; Start 09/06/17 at 23:30 Non-Formulary Medication 2 puff QID INH ; Start 09/07/17 at 09:00; Status UNV Duloxetine HCl (Cymbalta) 90 mg DAILY PO Last administered on 09/09/17 09:34 ; Start 09/07/17 at 09:00 Hyoscyamine (Anaspaz) 0.125 mg PRN Q4HRS PRN PO NAUSEA/VOMITING -GIVE MED SL; Start 09/06/17 at 23:15 Losartan Potassium (Cozaar) 100 mg DAILY PO Last administered on 09/09/17 09: 32; Start 09/07/17 at 09:00 Zolpidem Tartrate (Ambien) 5 mg QHS PO Last administered on 09/08/17 20:18; Start 09/06/17 at 23:45 Non-Formulary Medication 2 puff BID94 IH ; Start 09/07/17 at 09:00; Status UNV Pantoprazole Sodium (Protonix) 40 mg BIDAC PO Last administered on 09/09/17 09:31; Start 09/07/17 at 07:30 Ondansetron HCl (Zofran Odt) 4 mg Q8HRS PO ; Start 09/07/17 at 06:00 Oxcarbazepine (Trileptal) 300 mg DAILY08 PO Last administered on 09/09/17 09: 33; Start 09/07/17 at 08:00 Potassium Chloride (Klor-Con) 20 meq DAILY08 PO Last administered on 09:34; Start 09/07/17 at 08:00 Non-Formulary Medication 2.5 mg PRN Q2HR PRN NEB WHEEZING; Start 09/06/17 at 23:15; Status UNV Albuterol Sulfate (Ventolin Neb Soln) 2.5 mg PRN Q2HRS PRN NEB SHORTNESS OF BREATH; Start 09/07/17 at 01:00 Budesonide (Pulmicort) 0.5 mg RTBID NEB Last administered on 09/09/17 09:06; Start 09/07/17 at 08:00 Albuterol Sulfate (Ventolin Neb Soln) 2.5 mg RTQID NEB Last administered on 13:24; Start 09/07/17 at 08:00 Dipyridamole (Persantine) 25 mg DAILY PO Last administered on 09/09/17 09:32 ; Start 09/07/17 at 19:00 Cyanocobalamin (Vitamin B-12) 1,000 mcg DAILY IM Last administered on 09:43; Start 09/07/17 at 19:00 Vitamin D (Vitamin D3) 1,000 unit DAILY PO Last administered on 09/08/17 08: 31; Start 09/07/17 at 19:00; Stop 09/08/17 at 10:21; Status DC Calcium Carbonate/ Glycine (Oscal) 500 mg BIDWMEALS PO Last administered on 09:34; Start 09/07/17 at 18:30 Ergocalciferol (Vitamin D2) 50,000 unit WEEKLY PO Last administered on 11:26; Start 09/08/17 at 11:00 Diphenhydramine HCl (Benadryl) 25 mg 1X ONCE PO Last administered on 11:26; Start 09/08/17 at 10:30; Stop 09/08/17 at 10:32; Status DC Diphenhydramine HCl (Benadryl) 25 mg PRN Q6HRS PRN PO ITCHING Last administered on 09/09/17 15:31; Start 09/08/17 at 10:30 Vitamin B Complex (Folbic Tablet) 1 tab DAILY PO Last administered on 09:32; Start 09/08/17 at 10:30 Zinc Acetate/ Diphenhydramine (Benadryl Topical) 1 elke TID TP ; Start 09/09/17 at 14:15; Status UNV Hydrocortisone (Cortaid) 1 elke TID TP Last administered on 09/09/17 15:31; Start 09/09/17 at 15:00 Active Scripts Active Potassium Chloride 20 Meq Tablet.er 20 Meq PO DAILY 7 Days Ventolin Hfa Inhaler (Albuterol Sulfate) 18 Gm Hfa.aer.ad 2 Puff INH QID Bentyl (Dicyclomine Hcl) 10 Mg Capsule 10 Mg PO TID [Albuterol Sulfate] 2.5 MG/3 ML Nebu 2.5 Mg NEB PRN Q2HR PRN Reported Ventolin Hfa Inhaler (Albuterol Sulfate) 18 Gm Hfa.aer.ad 2 Puff INH BID Culturelle (Lactobacillus Rhamnosus Gg) 1 Each Capsule 1 Each PO DAILY Multivitamins (Multivitamin) 1 Each Tablet 1 Tab PO DAILY Melatonin 3 Mg Tablet 10 Mg PO QHS Coreg (Carvedilol) 6.25 Mg Tablet 1 Tab PO BID Vitamin C (Ascorbic Acid) 500 Mg Tab.chew 500 Mg PO DAILY Calcium 600 + Vit D 400 Softgl (Calcium Carbonate/Vitamin D3) 1 Each Capsule 1 Each PO DAILY Hyoscyamine Sulfate 0.125 Mg Tab.subl 0.125 Mg SL PRN Q4-6HRS PRN Cetirizine Hcl 10 Mg Tablet 1 Tab PO DAILY Cozaar (Losartan Potassium) 100 Mg Tablet 100 Mg PO DAILY Zofran (Ondansetron Hcl) 4 Mg Tablet 1 Tab PO Q8HRS Dulera 200 Mcg/5 Mcg Inhaler (Mometasone/Formoterol) 13 Gm Hfa.aer.ad 2 Puff IH BID94 Alendronate Sodium 70 Mg Tablet 1 Tab PO WEEKLY Omeprazole 40 Mg Capsule.dr 40 Mg PO BID Clonazepam 1 Mg Tablet 1 Tab PO QHS Clonazepam 0.5 Mg Tablet 0.5 Mg PO BID92 Trileptal (Oxcarbazepine) 300 Mg Tablet 450 Mg PO QHS Trileptal (Oxcarbazepine) 150 Mg Tablet 2 Tab PO DAILY08 Cymbalta (Duloxetine Hcl) 60 Mg Capsule.dr 90 Mg PO DAILY Vitals/I & O Vital Sign - Last 24 Hours 09/08/17 09/08/17 09/08/17 09/08/17 16:40 19:00 19:26 20:00 Temp 97.7 97.7 Pulse 88 89 Resp 16 B/P (MAP) 100/44 118/62 (80) Pulse Ox 99 96 O2 Delivery Room Air Room Air Room Air 09/08/17 09/09/17 09/09/17 09/09/17 23:34 03:00 07:00 08:00 Temp 97.7 98.2 96.4 97.7 98.2 96.4 Pulse 92 85 88 Resp 16 18 19 B/P (MAP) 120/56 (77) 126/65 (85) 125/52 (76) Pulse Ox 98 96 95 O2 Delivery Room Air Room Air Room Air Room Air 09/09/17 09/09/17 09/09/17 09/09/17 09:07 09:32 09:33 11:00 Temp 97.1 97.1 Pulse 85 85 90 Resp 22 B/P (MAP) 126/65 126/65 128/68 (88) Pulse Ox 100 97 O2 Delivery Room Air Room Air 09/09/17 13:25 O2 Delivery Room Air Intake and Output 09/08/17 09/08/17 09/09/17 15:00 23:00 07:00 Intake Total 120 ml 500 ml Balance 120 ml 500 ml YUE SIU MD Sep 09, 2017 16:40
[2017-09-09 19:00] VITALS: BP 139/58
[2017-09-09] MEDS: ZOLPIDEM 5 MG TABLET. PO SCH (21:42)
[2017-09-09] MEDS: clonazePAM 1 MG TABLET PO SCH (21:43)
[2017-09-09 23:00] VITALS: BP 144/56
[2017-09-10 03:00] VITALS: BP 119/54
[2017-09-10] MEDS: ONDANSETRON ODT 4 MG TAB.RAPDIS. PO SCH ×3 (05:22→22:23)
[2017-09-10 06:46] LABS: BASO % 0 % (0-3); EOS % 7 % (0-3); HEMATOCRIT 29.6 % (36.0-47.0); HEMOGLOBIN 9.9 g/dL (12.0-15.5); LYMPH # 0.2 x10^3/uL (1.0-4.8); LYMPH % 7 % (24-48); MEAN CORPUSCULAR HEMOGLOBIN 30 pg (25-35); MEAN CORPUSCULAR HGB CONC 34 g/dL (31-37); MEAN CORPUSCULAR VOLUME 90 fL (79-100); MONO % 11 % (0-9); NEUT % 74 % (31-73); PLATELET COUNT 167 x10^3/uL (140-400); RED CELL DISTRIBUTION WIDTH 13.6 % (11.5-14.5); WHITE BLOOD COUNT 2.5 x10^3/uL (4.0-11.0)
[2017-09-10 07:00] VITALS: BP 116/51
[2017-09-10 07:00] LABS: ALBUMIN 2.8 g/dL (3.4-5.0); ALBUMIN/GLOBULIN RATIO 1.4 (1.0-1.7); CALCIUM 7.6 mg/dL (8.5-10.1); CREATININE 0.7 mg/dL (0.6-1.0); POTASSIUM 4.1 mmol/L (3.5-5.1); TOTAL BILIRUBIN 0.1 mg/dL (0.2-1.0); TOTAL PROTEIN 4.8 g/dL (6.4-8.2)
[2017-09-10] MEDS: ALBUTEROL SULFATE 2.5 MG/3 ML NEBU. NEB SCH ×4 (08:29→20:09)
[2017-09-10] MEDS: BUDESONIDE 0.5 MG/2 ML NEBU. NEB SCH ×2 (08:29→20:09)
[2017-09-10] MEDS: HYDROCORTISONE 1% TOPICAL OINTMENT 30GM TUBE. TP SCH ×3 (09:00→17:32)
[2017-09-10 11:00] VITALS: BP 104/37
[2017-09-10] MEDS: CALCIUM CARBONATE 500 MG TABLET PO SCH ×2 (11:47→17:32)
[2017-09-10] MEDS: VITAMIN B12,B9,B6 COMPLEX 1 TABLET. PO SCH (11:47)
[2017-09-10] MEDS: DULoxetine HCL 30 MG CAPSULE.DR PO SCH (11:47)
[2017-09-10] MEDS: DIPYRIDAMOLE 25 MG TABLET. PO SCH (11:47)
[2017-09-10] MEDS: DICYCLOMINE HCL 10 MG CAPSULE PO SCH ×4 (11:47→20:45)
[2017-09-10] MEDS: clonazePAM 0.5 MG TABLET PO SCH ×2 (11:48→14:22)
[2017-09-10] MEDS: LOSARTAN POTASSIUM 50 MG TABLET. PO SCH (11:48)
[2017-09-10] MEDS: PANTOPRAZOLE 40 MG TABLET.DR. PO SCH ×2 (11:48→17:32)
[2017-09-10] MEDS: OXcarbazepine 300 MG TABLET PO SCH ×2 (11:49→20:42)
[2017-09-10] MEDS: POTASSIUM CHLORIDE 20 MEQ TABLET.ER. PO SCH (11:50)
[2017-09-10] MEDS: CETIRIZINE HCL 10 MG TABLET. PO SCH (11:50)
[2017-09-10] MEDS: CARVEDILOL 6.25 MG TABLET. PO SCH ×2 (11:50→17:32)
[2017-09-10] MEDS: CYANOCOBALAMIN (VITAMIN B-12) 1,000 MCG/ML VIAL IM SCH (11:51)
[2017-09-10 15:00] VITALS: BP 139/42
--- NOTE | 2017-09-10 16:17 | PDOC ---
PROGRESS NOTES Chief Complaint Chief Complaint severe headache on admit, resolved skin rash to back 1. Expressive aphasia: resolved, poss TIA, MRI and CTA are negative. 2. Cervical DJD: neck pain and arm paresthesias 3. Flushed upper torso and face: allergy NOS, try benadryl cream and hydrocort cream, 4. weakness and debility 5. vit d and B12 deficiency 6. Non-Hodgkin's lymphoma-Mantle cell lymphoma 7. HTN 8. Hypocalcemia. History of Present Illness History of Present Illness feels better, the hydrocort cream seems to be helping her rash still flushed and red, " I cant go home like this" headache better still weakness str improved overall, other issues still seem to get better, < headache Vitals Vitals Vital Signs Date Time Temp Pulse Resp B/P (MAP) Pulse Ox O2 Delivery O2 Flow Rate FiO2 09/10/17 16:04 Room Air 09/10/17 11:50 79 104/37 09/10/17 11:00 97.8 18 100 97.8 Physical Exam Physical Exam less flushed General: Alert, Oriented X3, Cooperative, No acute distress Heart: Regular rate Lungs: Clear Abdomen: Normal bowel sounds, No tenderness Extremities: No clubbing Skin: No rashes, Other (facial flushing) Labs LABS Laboratory Tests Test 09/10/17 06:30 White Blood Count 2.5 x10^3/uL (4.0-11.0) Red Blood Count 3.30 x10^6/uL (3.50-5.40) Hemoglobin 9.9 g/dL (12.0-15.5) Hematocrit 29.6 % (36.0-47.0) Mean Corpuscular Volume 90 fL (79-100) Mean Corpuscular Hemoglobin 30 pg (25-35) Mean Corpuscular Hemoglobin Concent 34 g/dL (31-37) Red Cell Distribution Width 13.6 % (11.5-14.5) Platelet Count 167 x10^3/uL (140-400) Neutrophils (%) (Auto) 74 % (31-73) Lymphocytes (%) (Auto) 7 % (24-48) Monocytes (%) (Auto) 11 % (0-9) Eosinophils (%) (Auto) 7 % (0-3) Basophils (%) (Auto) 0 % (0-3) Neutrophils # (Auto) 1.9 x10^3uL (1.8-7.7) Lymphocytes # (Auto) 0.2 x10^3/uL (1.0-4.8) Monocytes # (Auto) 0.3 x10^3/uL (0.0-1.1) Eosinophils # (Auto) 0.2 x10^3/uL (0.0-0.7) Basophils # (Auto) 0.0 x10^3/uL (0.0-0.2) Sodium Level 137 mmol/L (136-145) Potassium Level 4.1 mmol/L (3.5-5.1) Chloride Level 102 mmol/L (98-107) Carbon Dioxide Level 31 mmol/L (21-32) Anion Gap 4 (6-14) Blood Urea Nitrogen 11 mg/dL (7-20) Creatinine 0.7 mg/dL (0.6-1.0) Estimated GFR (Cockcroft-Gault) 83.0 BUN/Creatinine Ratio 16 (6-20) Glucose Level 98 mg/dL (70-99) Calcium Level 7.6 mg/dL (8.5-10.1) Total Bilirubin 0.1 mg/dL (0.2-1.0) Aspartate Amino Transf (AST/SGOT) 13 U/L (15-37) Alanine Aminotransferase (ALT/SGPT) 27 U/L (14-59) Alkaline Phosphatase 71 U/L (46-116) Total Protein 4.8 g/dL (6.4-8.2) Albumin 2.8 g/dL (3.4-5.0) Albumin/Globulin Ratio 1.4 (1.0-1.7) Review of Systems Review of Systems pruitis, sleeping well no headache she is still worried about numbness to the tip of her left index finger, likely injured during ambulance ride here, while trying to get a blood sugar Assessment and Plan Assessmemt and Plan Problems Medical Problems: (1) Headache Status: Acute Problems: Comment Review of Relevant I have reviewed the following items sola (where applicable) has been applied. Labs Laboratory Tests Test 09/10/17 06:30 White Blood Count 2.5 x10^3/uL (4.0-11.0) Red Blood Count 3.30 x10^6/uL (3.50-5.40) Hemoglobin 9.9 g/dL (12.0-15.5) Hematocrit 29.6 % (36.0-47.0) Mean Corpuscular Volume 90 fL (79-100) Mean Corpuscular Hemoglobin 30 pg (25-35) Mean Corpuscular Hemoglobin Concent 34 g/dL (31-37) Red Cell Distribution Width 13.6 % (11.5-14.5) Platelet Count 167 x10^3/uL (140-400) Neutrophils (%) (Auto) 74 % (31-73) Lymphocytes (%) (Auto) 7 % (24-48) Monocytes (%) (Auto) 11 % (0-9) Eosinophils (%) (Auto) 7 % (0-3) Basophils (%) (Auto) 0 % (0-3) Neutrophils # (Auto) 1.9 x10^3uL (1.8-7.7) Lymphocytes # (Auto) 0.2 x10^3/uL (1.0-4.8) Monocytes # (Auto) 0.3 x10^3/uL (0.0-1.1) Eosinophils # (Auto) 0.2 x10^3/uL (0.0-0.7) Basophils # (Auto) 0.0 x10^3/uL (0.0-0.2) Sodium Level 137 mmol/L (136-145) Potassium Level 4.1 mmol/L (3.5-5.1) Chloride Level 102 mmol/L (98-107) Carbon Dioxide Level 31 mmol/L (21-32) Anion Gap 4 (6-14) Blood Urea Nitrogen 11 mg/dL (7-20) Creatinine 0.7 mg/dL (0.6-1.0) Estimated GFR (Cockcroft-Gault) 83.0 BUN/Creatinine Ratio 16 (6-20) Glucose Level 98 mg/dL (70-99) Calcium Level 7.6 mg/dL (8.5-10.1) Total Bilirubin 0.1 mg/dL (0.2-1.0) Aspartate Amino Transf (AST/SGOT) 13 U/L (15-37) Alanine Aminotransferase (ALT/SGPT) 27 U/L (14-59) Alkaline Phosphatase 71 U/L (46-116) Total Protein 4.8 g/dL (6.4-8.2) Albumin 2.8 g/dL (3.4-5.0) Albumin/Globulin Ratio 1.4 (1.0-1.7) Laboratory Tests Test 09/10/17 06:30 White Blood Count 2.5 x10^3/uL (4.0-11.0) Red Blood Count 3.30 x10^6/uL (3.50-5.40) Hemoglobin 9.9 g/dL (12.0-15.5) Hematocrit 29.6 % (36.0-47.0) Mean Corpuscular Volume 90 fL (79-100) Mean Corpuscular Hemoglobin 30 pg (25-35) Mean Corpuscular Hemoglobin Concent 34 g/dL (31-37) Red Cell Distribution Width 13.6 % (11.5-14.5) Platelet Count 167 x10^3/uL (140-400) Neutrophils (%) (Auto) 74 % (31-73) Lymphocytes (%) (Auto) 7 % (24-48) Monocytes (%) (Auto) 11 % (0-9) Eosinophils (%) (Auto) 7 % (0-3) Basophils (%) (Auto) 0 % (0-3) Neutrophils # (Auto) 1.9 x10^3uL (1.8-7.7) Lymphocytes # (Auto) 0.2 x10^3/uL (1.0-4.8) Monocytes # (Auto) 0.3 x10^3/uL (0.0-1.1) Eosinophils # (Auto) 0.2 x10^3/uL (0.0-0.7) Basophils # (Auto) 0.0 x10^3/uL (0.0-0.2) Sodium Level 137 mmol/L (136-145) Potassium Level 4.1 mmol/L (3.5-5.1) Chloride Level 102 mmol/L (98-107) Carbon Dioxide Level 31 mmol/L (21-32) Anion Gap 4 (6-14) Blood Urea Nitrogen 11 mg/dL (7-20) Creatinine 0.7 mg/dL (0.6-1.0) Estimated GFR (Cockcroft-Gault) 83.0 BUN/Creatinine Ratio 16 (6-20) Glucose Level 98 mg/dL (70-99) Calcium Level 7.6 mg/dL (8.5-10.1) Total Bilirubin 0.1 mg/dL (0.2-1.0) Aspartate Amino Transf (AST/SGOT) 13 U/L (15-37) Alanine Aminotransferase (ALT/SGPT) 27 U/L (14-59) Alkaline Phosphatase 71 U/L (46-116) Total Protein 4.8 g/dL (6.4-8.2) Albumin 2.8 g/dL (3.4-5.0) Albumin/Globulin Ratio 1.4 (1.0-1.7) Medications Current Medications Fentanyl Citrate (Fentanyl 2ml Vial) 50 mcg 1X ONCE IV Last administered on 17:09; Start 09/06/17 at 16:45; Stop 09/06/17 at 16:46; Status DC Iohexol (Omnipaque 300 Mg/ml) 75 ml 1X ONCE IV ; Start 09/06/17 at 16:45; Stop 09/06/17 at 16:46; Status DC Info (Do NOT chart on this entry -- for MONITORING) 1 each PRN DAILY PRN MC SEE COMMENTS; Start 09/06/17 at 16:45; Stop 09/08/17 at 16:44; Status DC Ondansetron HCl (Zofran) 4 mg PRN Q8HRS PRN IV NAUSEA/VOMITING; Start at 18:45; Stop 09/07/17 at 18:44; Status DC Fentanyl Citrate (Fentanyl 2ml Vial) 50 mcg PRN Q1HR PRN IV PAIN Last administered on 09/06/17 19:09; Start 09/06/17 at 18:45; Stop 09/07/17 at 18 :44; Status DC Gadobutrol (Gadavist) 5 mmol 1X ONCE IV Last administered on 09/06/17 20:11 ; Start 09/06/17 at 19:30; Stop 09/06/17 at 19:31; Status DC Carvedilol (Coreg) 6.25 mg BIDWMEALS PO Last administered on 09/10/17 11:50; Start 09/07/17 at 08:00 Cetirizine HCl (ZyrTEC) 10 mg DAILY PO Last administered on 09/10/17 11:50; Start 09/07/17 at 09:00 Clonazepam (KlonoPIN) 0.5 mg BID92 PO Last administered on 09/10/17 14:22; Start 09/07/17 at 09:00 Clonazepam (KlonoPIN) 1 mg QHS PO Last administered on 09/09/17 21:43; Start 09/06/17 at 23:30 Dicyclomine HCl (Bentyl) 10 mg TID PO Last administered on 09/10/17 11:47; Start 09/07/17 at 09:00 Oxcarbazepine (Trileptal) 450 mg QHS PO Last administered on 09/09/17 21:42; Start 09/06/17 at 23:30 Non-Formulary Medication 2 puff QID INH ; Start 09/07/17 at 09:00; Status UNV Duloxetine HCl (Cymbalta) 90 mg DAILY PO Last administered on 09/10/17 11:47 ; Start 09/07/17 at 09:00 Hyoscyamine (Anaspaz) 0.125 mg PRN Q4HRS PRN PO NAUSEA/VOMITING -GIVE MED SL; Start 09/06/17 at 23:15 Losartan Potassium (Cozaar) 100 mg DAILY PO Last administered on 09/10/17 11: 48; Start 09/07/17 at 09:00 Zolpidem Tartrate (Ambien) 5 mg QHS PO Last administered on 09/09/17 21:42; Start 09/06/17 at 23:45 Non-Formulary Medication 2 puff BID94 IH ; Start 09/07/17 at 09:00; Status UNV Pantoprazole Sodium (Protonix) 40 mg BIDAC PO Last administered on 09/10/17 11:48; Start 09/07/17 at 07:30 Ondansetron HCl (Zofran Odt) 4 mg Q8HRS PO ; Start 09/07/17 at 06:00 Oxcarbazepine (Trileptal) 300 mg DAILY08 PO Last administered on 09/10/17 11: 49; Start 09/07/17 at 08:00 Potassium Chloride (Klor-Con) 20 meq DAILY08 PO Last administered on 11:50; Start 09/07/17 at 08:00 Non-Formulary Medication 2.5 mg PRN Q2HR PRN NEB WHEEZING; Start 09/06/17 at 23:15; Status UNV Albuterol Sulfate (Ventolin Neb Soln) 2.5 mg PRN Q2HRS PRN NEB SHORTNESS OF BREATH; Start 09/07/17 at 01:00 Budesonide (Pulmicort) 0.5 mg RTBID NEB Last administered on 09/10/17 08:29; Start 09/07/17 at 08:00 Albuterol Sulfate (Ventolin Neb Soln) 2.5 mg RTQID NEB Last administered on 16:02; Start 09/07/17 at 08:00 Dipyridamole (Persantine) 25 mg DAILY PO Last administered on 09/10/17 11:47 ; Start 09/07/17 at 19:00 Cyanocobalamin (Vitamin B-12) 1,000 mcg DAILY IM Last administered on 11:51; Start 09/07/17 at 19:00 Vitamin D (Vitamin D3) 1,000 unit DAILY PO Last administered on 09/08/17 08: 31; Start 09/07/17 at 19:00; Stop 09/08/17 at 10:21; Status DC Calcium Carbonate/ Glycine (Oscal) 500 mg BIDWMEALS PO Last administered on 11:47; Start 09/07/17 at 18:30 Ergocalciferol (Vitamin D2) 50,000 unit WEEKLY PO Last administered on 11:26; Start 09/08/17 at 11:00 Diphenhydramine HCl (Benadryl) 25 mg 1X ONCE PO Last administered on 11:26; Start 09/08/17 at 10:30; Stop 09/08/17 at 10:32; Status DC Diphenhydramine HCl (Benadryl) 25 mg PRN Q6HRS PRN PO ITCHING Last administered on 09/09/17 21:58; Start 09/08/17 at 10:30 Vitamin B Complex (Folbic Tablet) 1 tab DAILY PO Last administered on 11:47; Start 09/08/17 at 10:30 Zinc Acetate/ Diphenhydramine (Benadryl Topical) 1 elke TID TP ; Start 09/09/17 at 14:15; Status UNV Hydrocortisone (Cortaid) 1 elke TID TP Last administered on 09/09/17t 23:49; Start 09/09/17 at 15:00 Active Scripts Active Potassium Chloride 20 Meq Tablet.er 20 Meq PO DAILY 7 Days Ventolin Hfa Inhaler (Albuterol Sulfate) 18 Gm Hfa.aer.ad 2 Puff INH QID Bentyl (Dicyclomine Hcl) 10 Mg Capsule 10 Mg PO TID [Albuterol Sulfate] 2.5 MG/3 ML Nebu 2.5 Mg NEB PRN Q2HR PRN Reported Ventolin Hfa Inhaler (Albuterol Sulfate) 18 Gm Hfa.aer.ad 2 Puff INH BID Culturelle (Lactobacillus Rhamnosus Gg) 1 Each Capsule 1 Each PO DAILY Multivitamins (Multivitamin) 1 Each Tablet 1 Tab PO DAILY Melatonin 3 Mg Tablet 10 Mg PO QHS Coreg (Carvedilol) 6.25 Mg Tablet 1 Tab PO BID Vitamin C (Ascorbic Acid) 500 Mg Tab.chew 500 Mg PO DAILY Calcium 600 + Vit D 400 Softgl (Calcium Carbonate/Vitamin D3) 1 Each Capsule 1 Each PO DAILY Hyoscyamine Sulfate 0.125 Mg Tab.subl 0.125 Mg SL PRN Q4-6HRS PRN Cetirizine Hcl 10 Mg Tablet 1 Tab PO DAILY Cozaar (Losartan Potassium) 100 Mg Tablet 100 Mg PO DAILY Zofran (Ondansetron Hcl) 4 Mg Tablet 1 Tab PO Q8HRS Dulera 200 Mcg/5 Mcg Inhaler (Mometasone/Formoterol) 13 Gm Hfa.aer.ad 2 Puff IH BID94 Alendronate Sodium 70 Mg Tablet 1 Tab PO WEEKLY Omeprazole 40 Mg Capsule. 40 Mg PO BID Clonazepam 1 Mg Tablet 1 Tab PO QHS Clonazepam 0.5 Mg Tablet 0.5 Mg PO BID92 Trileptal (Oxcarbazepine) 300 Mg Tablet 450 Mg PO QHS Trileptal (Oxcarbazepine) 150 Mg Tablet 2 Tab PO DAILY08 Cymbalta (Duloxetine Hcl) 60 Mg Capsule. 90 Mg PO DAILY Vitals/I & O Vital Sign - Last 24 Hours 09/09/17 09/09/17 09/09/17 09/09/17 17:49 19:00 20:00 20:08 Temp 97.7 97.7 Pulse 82 89 Resp 20 B/P (MAP) 137/61 139/58 (85) Pulse Ox 99 98 O2 Delivery Room Air Room Air Room Air 09/09/17 09/10/17 09/10/17 09/10/17 23:00 03:00 07:00 08:00 Temp 97.5 97.7 98.3 97.5 97.7 98.3 Pulse 95 87 91 Resp 20 20 16 B/P (MAP) 144/56 (85) 119/54 (75) 116/51 (72) Pulse Ox 99 98 97 O2 Delivery Room Air Room Air Room Air Room Air 09/10/17 09/10/17 09/10/17 09/10/17 08:32 11:00 11:48 11:50 Temp 97.8 97.8 Pulse 79 79 79 Resp 18 B/P (MAP) 104/37 (59) 104/37 104/37 Pulse Ox 97 100 O2 Delivery Room Air Room Air 09/10/17 16:04 O2 Delivery Room Air Intake and Output 09/09/17 09/09/17 09/10/17 15:00 23:00 07:00 Intake Total 1475 ml 1200 ml 150 ml Balance 1475 ml 1200 ml 150 ml YUE SIU MD Sep 10, 2017 16:17
--- NOTE | 2017-09-10 16:43 | CARD ---
APPROVED REPORT EXAM: Two-dimensional and M-mode echocardiogram with Doppler and color Doppler. Other Information Quality : Good INDICATION CVA/TIA Echo Enhancing Agent Indication: Rule Out Septal Defect Agent/Amount Used: Agitated Saline mL 2D DIMENSIONS Left Atrium(2D)2.9 (1.6-4.0cm)IVSd1.0 (0.7-1.1cm) Aortic Root(2D)2.8 (2.0-3.7cm)LVDd4.4 (3.9-5.9cm) LVOT Diameter1.7 (1.8-2.4cm)PWd1.0 (0.7-1.1cm) LVDs2.8 (2.5-4.0cm)FS (%) 36.7 % SV59.2 mlLVEF(%)66.8 (>50%) Aortic Valve AoV Peak Jason.125.1cm/sAoV VTI26.6cm AO Peak GR.6.3mmHgLVOT Peak Jason.106.0cm/s AO Mean GR.3mmHgAVA (VMAX)1.83cm2 LKUE (VTI)2.00cm2 Mitral Valve MV E Afobjnws00.7cm/sMV DECEL [id number] MV A Knmalwxt82.7cm/sE/A Ratio0.8 Tricuspid Valve TR P. Dvnjnfcw672yp/sRAP [id number] TR Peak Gr.84hrCrORCW75ujUx LEFT VENTRICLE The left ventricle is normal size. There is normal left ventricular wall thickness. Left ventricle sy stolic function is normal. The Ejection Fraction is 55-60%. There is normal LV segmental wall motion. Transmitral Doppler flow pattern is Grade I-abnormal relaxation pattern. RIGHT VENTRICLE The right ventricle is normal size. The right ventricular systolic function is normal. ATRIA The left atrium size is normal. The right atrium size is normal. Mildly aneurysmal interatrial septal noted. The interatrial septum is intact with no evidence for an atrial septal defect or patent mateusz en ovale as noted on 2-D or Doppler imaging. Normal bubble study AORTIC VALVE The aortic valve is mildly calcified. Doppler and Color Flow revealed no significant aortic regurgita tion. There is no significant aortic valvular stenosis. MITRAL VALVE The mitral valve is mildly thickened. There is no evidence of mitral valve prolapse. There is no mitr al valve stenosis. Doppler and Color-flow revealed trace to mild mitral regurgitation. TRICUSPID VALVE The tricuspid valve is normal in structure and function. Doppler and Color Flow revealed mild tricusp id regurgitation. The PA pressure was estimated at 20 mmHg. There is no tricuspid valve prolapse or v egetation. There is no tricuspid valve stenosis. PULMONIC VALVE The pulmonic valve is mildly thickened. Doppler and Color Flow revealed trace pulmonic valvular regur gitation. There is no pulmonic valvular stenosis. GREAT VESSELS The aortic root is normal in size. The ascending aorta is normal in size. The IVC is normal in size a nd collapses >50% with inspiration. PERICARDIAL EFFUSION There is no pleural effusion. There is no evidence of significant pericardial effusion. Critical Notification Critical Value: No <Conclusion> The left ventricle is normal size. Left ventricle systolic function is normal. The Ejection Fraction is 55-60%. There is normal left ventricular wall thickness. Mildly aneurysmal interatrial septal noted. The interatrial septum is intact with no evidence for an atrial septal defect or patent foramen ovale as noted on 2-D or Doppler imaging. Normal bubble study There is no significant aortic valvular stenosis. Doppler and Color Flow revealed no significant aortic regurgitation. Doppler and Color-flow revealed trace to mild mitral regurgitation. Doppler and Color Flow revealed mild tricuspid regurgitation. The PA pressure was estimated at 20 mmHg.
--- NOTE | 2017-09-10 17:35 | PDOC ---
PROGRESS NOTES Assessment Assessment Visual disturbances on 09/06. TIA? Headache, migraine. Neck pain. Non-Hodgkin's lymphoma-Mantle cell HTN Hypocalcemia. Vit B12 deficiency. Vit D insufficiency. No evidence of acute CVA this time. No evidence of C-cord disease. RECOMMENDATIONS/PLAN: Pain control for headaches. Persantine 25 mg daily, patient was allergic to ASA. Vit B12 1000 mcg Inj daily, change to 1 mg PO daily at discharge. Vit D 3 1000 units daily. Calcium 500 mg bid. HISTORY OF THE PRESENT ILLNESS: 67-y-old female patient with above medical diseases developed symptoms of visual disturbances seeing spots while doing [employer] cards, and she also had symptoms of headaches and right side neck pain associated. No sensory or motor deficits. She stated on 09/10 that she has been doing better. PAST MEDICAL HISTORY: Anxiety, Asthma, Bipolar, Cancer, Constipation, Depression, GERD, Hypertension, IBS, Migraines, Non Hodgkins Lymphoma- Mantle Cell PAST SURGERY HISTORY:Past Cholecystectomy, Tonsillectomy, X3 D&C,GROIN BX,BONE MARROW BX,PORT-A-CATH PLACEMENT RIGHT CHEST FAMILY HISTORY: Heart disease. SOCIAL HISTORY: She is , living with children and no toxic habits. ALLERGIES: SULFA, AMOXICILLIN, ASPIRIN, BUTALBITAL, CAFFEINE, AND VANCOMYCIN. MEDICATIONS: Refer to MAR REVIEW OF SYSTEMS: Constitutional: No malnutrition, cachexia. Head: No traumatic brain or head injury. Skin: No edema, or rash. Ear: No infection, tinnitus. Eyes: No vision loss or color blindness. Nose: No bleeding or purulent discharges. Hearing: No hearing decrease. Neck: No injury. Breast: No history of cancer, masses,or discharges. Cardiac: HTN. Pulmonary: No COPD. GI: No GI ulcer, GI bleeding. Urinary/genital: UTI. Endocrinologic: No cousin face, craniofacial dysmorphism, polydactyly. Skeletomuscular: No muscular atrophy, deformity. Neurological: see HP. Psychiatric: Denies drug use/abuse. Otherwise, not [id number] review of systems. PHYSICAL EXAMINATION: General appearance is normal. HEENT: Normocephalic and nontraumatic. Eyes, nose, ears, and throat are unremarkable. Neck is supple. No lymphadenopathy. No crepitus. Cardiovascular: S1, S2, regular rate and rhythm. Pulmonary: Clear to auscultation bilaterally. Abdomen: Bowel sounds are positive. Abdomen is soft, nontender, and nondistended. Extremities: No rash, lesions, or edema. No restriction of range of motion NEUROLOGICAL EXAMINATION: Alert Oriented to time, place and person. PERRL. EOMI. CN: no focal findings. Muscle tone: within normal. Muscle strength: 5 DTR: 2 Plantar reflex: Flexor response bilaterally Gait: not examined in bed. Sensory exam: no abnormal findings. No cerebellar signs elicited. F-T-N test accurate. Objective Objective Vital Signs Date Time Temp Pulse Resp B/P (MAP) Pulse Ox O2 Delivery O2 Flow Rate FiO2 09/10/17 17:32 86 139/42 09/10/17 16:04 Room Air 09/10/17 15:00 97.7 18 100 97.7 Intake and Output 09/10/17 07:00 Intake Total 2825 ml Balance 2825 ml Intake Oral 2825 ml # Voids 6 # Bowel Movements 3 Vitals Signs Vitals VS - Last 72 Hours, by Label Date Time Temp Pulse Resp B/P (MAP) Pulse Ox O2 Delivery O2 Flow Rate FiO2 09/10/17 17:32 86 139/42 09/10/17 16:04 Room Air 09/10/17 15:00 97.7 86 18 139/42 (74) 100 Room Air 97.7 09/10/17 11:50 79 104/37 09/10/17 11:48 79 104/37 09/10/17 11:00 97.8 79 18 104/37 (59) 100 Room Air 97.8 09/10/17 08:32 97 Room Air 09/10/17 08:00 Room Air 09/10/17 07:00 98.3 91 16 116/51 (72) 97 Room Air 98.3 09/10/17 03:00 97.7 87 20 119/54 (75) 98 Room Air 97.7 09/09/17 23:00 97.5 95 20 144/56 (85) 99 Room Air 97.5 09/09/17 20:08 98 Room Air 09/09/17 20:00 Room Air 09/09/17 19:00 97.7 89 20 139/58 (85) 99 Room Air 97.7 09/09/17 17:49 82 137/61 09/09/17 15:00 96.6 82 20 137/61 (86) 100 Room Air 96.6 09/09/17 13:25 Room Air 09/09/17 11:00 97.1 90 22 128/68 (88) 97 Room Air 97.1 09/09/17 09:33 85 126/65 09/09/17 09:32 85 126/65 09/09/17 09:07 100 Room Air 09/09/17 08:00 Room Air 09/09/17 07:00 96.4 88 19 125/52 (76) 95 Room Air 96.4 Laboratory Laboratory Laboratory Tests Test 09/10/17 06:30 White Blood Count 2.5 x10^3/uL (4.0-11.0) Red Blood Count 3.30 x10^6/uL (3.50-5.40) Hemoglobin 9.9 g/dL (12.0-15.5) Hematocrit 29.6 % (36.0-47.0) Mean Corpuscular Volume 90 fL (79-100) Mean Corpuscular Hemoglobin 30 pg (25-35) Mean Corpuscular Hemoglobin Concent 34 g/dL (31-37) Red Cell Distribution Width 13.6 % (11.5-14.5) Platelet Count 167 x10^3/uL (140-400) Neutrophils (%) (Auto) 74 % (31-73) Lymphocytes (%) (Auto) 7 % (24-48) Monocytes (%) (Auto) 11 % (0-9) Eosinophils (%) (Auto) 7 % (0-3) Basophils (%) (Auto) 0 % (0-3) Neutrophils # (Auto) 1.9 x10^3uL (1.8-7.7) Lymphocytes # (Auto) 0.2 x10^3/uL (1.0-4.8) Monocytes # (Auto) 0.3 x10^3/uL (0.0-1.1) Eosinophils # (Auto) 0.2 x10^3/uL (0.0-0.7) Basophils # (Auto) 0.0 x10^3/uL (0.0-0.2) Sodium Level 137 mmol/L (136-145) Potassium Level 4.1 mmol/L (3.5-5.1) Chloride Level 102 mmol/L (98-107) Carbon Dioxide Level 31 mmol/L (21-32) Anion Gap 4 (6-14) Blood Urea Nitrogen 11 mg/dL (7-20) Creatinine 0.7 mg/dL (0.6-1.0) Estimated GFR (Cockcroft-Gault) 83.0 BUN/Creatinine Ratio 16 (6-20) Glucose Level 98 mg/dL (70-99) Calcium Level 7.6 mg/dL (8.5-10.1) Total Bilirubin 0.1 mg/dL (0.2-1.0) Aspartate Amino Transf (AST/SGOT) 13 U/L (15-37) Alanine Aminotransferase (ALT/SGPT) 27 U/L (14-59) Alkaline Phosphatase 71 U/L (46-116) Total Protein 4.8 g/dL (6.4-8.2) Albumin 2.8 g/dL (3.4-5.0) Albumin/Globulin Ratio 1.4 (1.0-1.7) Comment Review of Relevant I have reviewed the following items sola (where applicable) has been applied. ROSCOE BANGURA MD Sep 10, 2017 17:35
[2017-09-10 19:00] VITALS: BP 151/68
[2017-09-10] MEDS: ZOLPIDEM 5 MG TABLET. PO SCH ×2 (20:35→20:43)
[2017-09-10] MEDS: clonazePAM 1 MG TABLET PO SCH (20:41)
[2017-09-10 23:17] VITALS: BP 149/53
[2017-09-11] MEDS: ONDANSETRON ODT 4 MG TAB.RAPDIS. PO SCH (06:12)
[2017-09-11 07:50] VITALS: BP 100/46
[2017-09-11] MEDS: BUDESONIDE 0.5 MG/2 ML NEBU. NEB SCH (08:00)
[2017-09-11] MEDS: ALBUTEROL SULFATE 2.5 MG/3 ML NEBU. NEB SCH ×2 (08:00→11:24)
[2017-09-11] MEDS: CARVEDILOL 6.25 MG TABLET. PO SCH ×2 (08:00→09:35)
[2017-09-11] MEDS: DICYCLOMINE HCL 10 MG CAPSULE PO SCH ×2 (09:00→09:32)
[2017-09-11] MEDS: PANTOPRAZOLE 40 MG TABLET.DR. PO SCH (09:31)
[2017-09-11] MEDS: DULoxetine HCL 30 MG CAPSULE.DR PO SCH (09:31)
[2017-09-11] MEDS: OXcarbazepine 300 MG TABLET PO SCH (09:32)
[2017-09-11] MEDS: VITAMIN B12,B9,B6 COMPLEX 1 TABLET. PO SCH (09:32)
[2017-09-11] MEDS: LOSARTAN POTASSIUM 50 MG TABLET. PO SCH (09:33)
[2017-09-11] MEDS: clonazePAM 0.5 MG TABLET PO SCH (09:33)
[2017-09-11] MEDS: CETIRIZINE HCL 10 MG TABLET. PO SCH (09:33)
[2017-09-11] MEDS: CALCIUM CARBONATE 500 MG TABLET PO SCH (09:34)
[2017-09-11] MEDS: POTASSIUM CHLORIDE 20 MEQ TABLET.ER. PO SCH (09:34)
[2017-09-11] MEDS: diphenhydrAMINE HCL 25 MG CAPSULE PO PRN (09:35)
[2017-09-11] MEDS: CYANOCOBALAMIN (VITAMIN B-12) 1,000 MCG/ML VIAL IM SCH (09:36)
[2017-09-11] MEDS: HYDROCORTISONE 1% TOPICAL OINTMENT 30GM TUBE. TP SCH (09:36)
[2017-09-11] MEDS: DIPYRIDAMOLE 25 MG TABLET. PO SCH (09:38)
[2017-09-11 10:51] VITALS: BP 110/62
--- NOTE | 2017-09-11 11:34 | PDOC ---
PROGRESS NOTES Chief Complaint Chief Complaint Headache and dysarthria, resolved Non-Hodgkin's lymphoma-Mantle cell lymphoma HTN Weakness Hypocalcemia Anemia Leukopenia Bipolar disorder Asthma HTN GERD History of Present Illness History of Present Illness Patient seen at bedside Patient reports her pain is being controlled well with medications Discussed with nurse Neurology following case No more spots in vision Rash on back, hydrocortisone cream being used Vitals Vitals Vital Signs Date Time Temp Pulse Resp B/P (MAP) Pulse Ox O2 Delivery O2 Flow Rate FiO2 09/11/17 11:25 1 Room Air 09/11/17 10:51 98.3 78 18 110/62 (78) 98.3 Physical Exam Physical Exam less flushed General: Alert, Oriented X3, Cooperative, No acute distress Heart: Regular rate Lungs: Clear Abdomen: Normal bowel sounds, No tenderness Extremities: No clubbing Skin: No rashes, Other (facial flushing) Review of Systems Review of Systems Complains of rash on back Denies dyspnea or SOA Assessment and Plan Assessmemt and Plan Problems Medical Problems: (1) Headache Status: Acute Assessment Headache and dysarthria, resolved Non-Hodgkin's lymphoma-Mantle cell lymphoma HTN Weakness Hypocalcemia Anemia Leukopenia Bipolar disorder Asthma HTN GERD Plan Continue prn pain medications DC if ok with subspecialist Continue steroid cream for rash Recheck labs PT/OT Problems: Comment Review of Relevant I have reviewed the following items sola (where applicable) has been applied. Labs Laboratory Tests Test 09/10/17 06:30 White Blood Count 2.5 x10^3/uL (4.0-11.0) Red Blood Count 3.30 x10^6/uL (3.50-5.40) Hemoglobin 9.9 g/dL (12.0-15.5) Hematocrit 29.6 % (36.0-47.0) Mean Corpuscular Volume 90 fL (79-100) Mean Corpuscular Hemoglobin 30 pg (25-35) Mean Corpuscular Hemoglobin Concent 34 g/dL (31-37) Red Cell Distribution Width 13.6 % (11.5-14.5) Platelet Count 167 x10^3/uL (140-400) Neutrophils (%) (Auto) 74 % (31-73) Lymphocytes (%) (Auto) 7 % (24-48) Monocytes (%) (Auto) 11 % (0-9) Eosinophils (%) (Auto) 7 % (0-3) Basophils (%) (Auto) 0 % (0-3) Neutrophils # (Auto) 1.9 x10^3uL (1.8-7.7) Lymphocytes # (Auto) 0.2 x10^3/uL (1.0-4.8) Monocytes # (Auto) 0.3 x10^3/uL (0.0-1.1) Eosinophils # (Auto) 0.2 x10^3/uL (0.0-0.7) Basophils # (Auto) 0.0 x10^3/uL (0.0-0.2) Sodium Level 137 mmol/L (136-145) Potassium Level 4.1 mmol/L (3.5-5.1) Chloride Level 102 mmol/L (98-107) Carbon Dioxide Level 31 mmol/L (21-32) Anion Gap 4 (6-14) Blood Urea Nitrogen 11 mg/dL (7-20) Creatinine 0.7 mg/dL (0.6-1.0) Estimated GFR (Cockcroft-Gault) 83.0 BUN/Creatinine Ratio 16 (6-20) Glucose Level 98 mg/dL (70-99) Calcium Level 7.6 mg/dL (8.5-10.1) Total Bilirubin 0.1 mg/dL (0.2-1.0) Aspartate Amino Transf (AST/SGOT) 13 U/L (15-37) Alanine Aminotransferase (ALT/SGPT) 27 U/L (14-59) Alkaline Phosphatase 71 U/L (46-116) Total Protein 4.8 g/dL (6.4-8.2) Albumin 2.8 g/dL (3.4-5.0) Albumin/Globulin Ratio 1.4 (1.0-1.7) Medications Current Medications Fentanyl Citrate (Fentanyl 2ml Vial) 50 mcg 1X ONCE IV Last administered on t 17:09; Start 09/06/17 at 16:45; Stop 09/06/17 at 16:46; Status DC Iohexol (Omnipaque 300 Mg/ml) 75 ml 1X ONCE IV ; Start 09/06/17 at 16:45; Stop 09/06/17 at 16:46; Status DC Info (Do NOT chart on this entry -- for MONITORING) 1 each PRN DAILY PRN MC SEE COMMENTS; Start 09/06/17 at 16:45; Stop 09/08/17 at 16:44; Status DC Ondansetron HCl (Zofran) 4 mg PRN Q8HRS PRN IV NAUSEA/VOMITING; Start at 18:45; Stop 09/07/17 at 18:44; Status DC Fentanyl Citrate (Fentanyl 2ml Vial) 50 mcg PRN Q1HR PRN IV PAIN Last administered on 09/06/17 19:09; Start 09/06/17 at 18:45; Stop 09/07/17 at 18 :44; Status DC Gadobutrol (Gadavist) 5 mmol 1X ONCE IV Last administered on 09/06/17 20:11 ; Start 09/06/17 at 19:30; Stop 09/06/17 at 19:31; Status DC Carvedilol (Coreg) 6.25 mg BIDWMEALS PO Last administered on 09/10/17 17:32; Start 09/07/17 at 08:00 Cetirizine HCl (ZyrTEC) 10 mg DAILY PO Last administered on 09/11/17 09:33; Start 09/07/17 at 09:00 Clonazepam (KlonoPIN) 0.5 mg BID92 PO Last administered on 09/11/17 09:33; Start 09/07/17 at 09:00 Clonazepam (KlonoPIN) 1 mg QHS PO Last administered on 09/10/17 20:41; Start 09/06/17 at 23:30 Dicyclomine HCl (Bentyl) 10 mg TID PO Last administered on 09/10/17 11:47; Start 09/07/17 at 09:00 Oxcarbazepine (Trileptal) 450 mg QHS PO Last administered on 09/10/17 20:42; Start 09/06/17 at 23:30 Non-Formulary Medication 2 puff QID INH ; Start 09/07/17 at 09:00; Status UNV Duloxetine HCl (Cymbalta) 90 mg DAILY PO Last administered on 09/11/17 09:31 ; Start 09/07/17 at 09:00 Hyoscyamine (Anaspaz) 0.125 mg PRN Q4HRS PRN PO NAUSEA/VOMITING -GIVE MED SL; Start 09/06/17 at 23:15 Losartan Potassium (Cozaar) 100 mg DAILY PO Last administered on 09/11/17 09: 33; Start 09/07/17 at 09:00 Zolpidem Tartrate (Ambien) 5 mg QHS PO Last administered on 09/09/17 21:42; Start 09/06/17 at 23:45 Non-Formulary Medication 2 puff BID94 IH ; Start 09/07/17 at 09:00; Status UNV Pantoprazole Sodium (Protonix) 40 mg BIDAC PO Last administered on 09/11/17 09:31; Start 09/07/17 at 07:30 Ondansetron HCl (Zofran Odt) 4 mg Q8HRS PO ; Start 09/07/17 at 06:00 Oxcarbazepine (Trileptal) 300 mg DAILY08 PO Last administered on 09/11/17 09: 32; Start 09/07/17 at 08:00 Potassium Chloride (Klor-Con) 20 meq DAILY08 PO Last administered on 09:34; Start 09/07/17 at 08:00 Non-Formulary Medication 2.5 mg PRN Q2HR PRN NEB WHEEZING; Start 09/06/17 at 23:15; Status UNV Albuterol Sulfate (Ventolin Neb Soln) 2.5 mg PRN Q2HRS PRN NEB SHORTNESS OF BREATH; Start 09/07/17 at 01:00 Budesonide (Pulmicort) 0.5 mg RTBID NEB Last administered on 09/11/17 08:00; Start 09/07/17 at 08:00 Albuterol Sulfate (Ventolin Neb Soln) 2.5 mg RTQID NEB Last administered on 11:24; Start 09/07/17 at 08:00 Dipyridamole (Persantine) 25 mg DAILY PO Last administered on 09/11/17 09:38 ; Start 09/07/17 at 19:00 Cyanocobalamin (Vitamin B-12) 1,000 mcg DAILY IM Last administered on 09:36; Start 09/07/17 at 19:00 Vitamin D (Vitamin D3) 1,000 unit DAILY PO Last administered on 09/08/17 08: 31; Start 09/07/17 at 19:00; Stop 09/08/17 at 10:21; Status DC Calcium Carbonate/ Glycine (Oscal) 500 mg BIDWMEALS PO Last administered on 09:34; Start 09/07/17 at 18:30 Ergocalciferol (Vitamin D2) 50,000 unit WEEKLY PO Last administered on 11:26; Start 09/08/17 at 11:00 Diphenhydramine HCl (Benadryl) 25 mg 1X ONCE PO Last administered on 11:26; Start 09/08/17 at 10:30; Stop 09/08/17 at 10:32; Status DC Diphenhydramine HCl (Benadryl) 25 mg PRN Q6HRS PRN PO ITCHING Last administered on 09/11/17 09:35; Start 09/08/17 at 10:30 Vitamin B Complex (Folbic Tablet) 1 tab DAILY PO Last administered on 09:32; Start 09/08/17 at 10:30 Zinc Acetate/ Diphenhydramine (Benadryl Topical) 1 elke TID TP ; Start 09/09/17 at 14:15; Status UNV Hydrocortisone (Cortaid) 1 elke TID TP Last administered on 09/11/17 09:36; Start 09/09/17 at 15:00 Active Scripts Active Potassium Chloride 20 Meq Tablet.er 20 Meq PO DAILY 7 Days Ventolin Hfa Inhaler (Albuterol Sulfate) 18 Gm Hfa.aer.ad 2 Puff INH QID Bentyl (Dicyclomine Hcl) 10 Mg Capsule 10 Mg PO TID [Albuterol Sulfate] 2.5 MG/3 ML Nebu 2.5 Mg NEB PRN Q2HR PRN Reported Ventolin Hfa Inhaler (Albuterol Sulfate) 18 Gm Hfa.aer.ad 2 Puff INH BID Culturelle (Lactobacillus Rhamnosus Gg) 1 Each Capsule 1 Each PO DAILY Multivitamins (Multivitamin) 1 Each Tablet 1 Tab PO DAILY Melatonin 3 Mg Tablet 10 Mg PO QHS Coreg (Carvedilol) 6.25 Mg Tablet 1 Tab PO BID Vitamin C (Ascorbic Acid) 500 Mg Tab.chew 500 Mg PO DAILY Calcium 600 + Vit D 400 Softgl (Calcium Carbonate/Vitamin D3) 1 Each Capsule 1 Each PO DAILY Hyoscyamine Sulfate 0.125 Mg Tab.subl 0.125 Mg SL PRN Q4-6HRS PRN Cetirizine Hcl 10 Mg Tablet 1 Tab PO DAILY Cozaar (Losartan Potassium) 100 Mg Tablet 100 Mg PO DAILY Zofran (Ondansetron Hcl) 4 Mg Tablet 1 Tab PO Q8HRS Dulera 200 Mcg/5 Mcg Inhaler (Mometasone/Formoterol) 13 Gm Hfa.aer.ad 2 Puff IH BID94 Alendronate Sodium 70 Mg Tablet 1 Tab PO WEEKLY Omeprazole 40 Mg Capsule.dr 40 Mg PO BID Clonazepam 1 Mg Tablet 1 Tab PO QHS Clonazepam 0.5 Mg Tablet 0.5 Mg PO BID92 Trileptal (Oxcarbazepine) 300 Mg Tablet 450 Mg PO QHS Trileptal (Oxcarbazepine) 150 Mg Tablet 2 Tab PO DAILY08 Cymbalta (Duloxetine Hcl) 60 Mg Capsule.dr 90 Mg PO DAILY Vitals/I & O Vital Sign - Last 24 Hours 09/10/17 09/10/17 09/10/17 09/10/17 11:48 11:50 15:00 16:04 Temp 97.7 97.7 Pulse 79 79 86 Resp 18 B/P (MAP) 104/37 104/37 139/42 (74) Pulse Ox 100 O2 Delivery Room Air Room Air 09/10/17 09/10/17 09/10/17 09/10/17 17:32 19:00 20:10 20:11 Temp 97.7 97.7 Pulse 86 91 Resp 18 B/P (MAP) 139/42 151/68 (95) Pulse Ox 99 98 O2 Delivery Room Air Room Air Room Air 09/10/17 09/10/17 09/11/17 09/11/17 20:12 23:17 07:50 08:00 Temp 97.9 98.6 97.9 98.6 Pulse 85 79 79 Resp 18 18 B/P (MAP) 149/53 (85) 100/46 (64) 100/46 Pulse Ox 98 99 100 O2 Delivery Room Air Room Air Room Air 09/11/17 09/11/17 09/11/17 09/11/17 08:02 09:33 10:51 11:25 Temp 98.3 98.3 Pulse 79 78 Resp 18 B/P (MAP) 100/46 110/62 (78) Pulse Ox 100 100 1 O2 Delivery Room Air Room Air Room Air Intake and Output 09/10/17 09/10/17 09/11/17 15:00 23:00 07:00 Intake Total 400 ml 200 ml Balance 400 ml 200 ml RANJITH IRIZARRY III DO Sep 11, 2017 11:34
[2017-09-11] MEDS ORDERED: HEPARIN PF 500 UNIT/5 ML DISP.SYRIN. IV ONE (14:00)
--- NOTE | 2017-09-11 16:37 | PDOC ---
PROGRESS NOTES Assessment Assessment Visual disturbances on 09/06. TIA? Headache, migraine. Neck pain. Non-Hodgkin's lymphoma-Mantle cell HTN Hypocalcemia. Vit B12 deficiency. Vit D insufficiency. No evidence of acute CVA this time. No evidence of C-cord disease. RECOMMENDATIONS/PLAN: Pain control for headache. Persantine 25 mg daily, patient was allergic to ASA. Vit B12 1000 mcg Inj daily, change to 1 mg PO daily at discharge. Vit D 3 1000 units daily. Calcium 500 mg bid. FU with PCP. 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 No sensory or motor deficits. She stated on 09/10 that she has been doing better since. PAST MEDICAL HISTORY: Anxiety, Asthma, Bipolar, Cancer, Constipation, Depression, GERD, Hypertension, IBS, Migraines, Non Hodgkins Lymphoma- Mantle Cell PAST SURGERY HISTORY:Past Cholecystectomy, Tonsillectomy, X3 D&C,GROIN BX,BONE MARROW BX,PORT-A-CATH PLACEMENT RIGHT CHEST FAMILY HISTORY: Heart disease. SOCIAL HISTORY: She is , living with children and no toxic habits. ALLERGIES: SULFA, AMOXICILLIN, ASPIRIN, BUTALBITAL, CAFFEINE, AND VANCOMYCIN. MEDICATIONS: Refer to MAR REVIEW OF SYSTEMS: Constitutional: No malnutrition, cachexia. Head: No traumatic brain or head injury. Skin: No edema, or rash. Ear: No infection, tinnitus. Eyes: No vision loss or color blindness. Nose: No bleeding or purulent discharges. Hearing: No hearing decrease. Neck: No injury. Breast: No history of cancer, masses,or discharges. Cardiac: HTN. Pulmonary: No COPD. GI: No GI ulcer, GI bleeding. Urinary/genital: UTI. Endocrinologic: No cousin face, craniofacial dysmorphism, polydactyly. Skeletomuscular: No muscular atrophy, deformity. Neurological: see HP. Psychiatric: Denies drug use/abuse. Otherwise, not [id number] review of systems. PHYSICAL EXAMINATION: General appearance is normal. HEENT: Normocephalic and nontraumatic. Eyes, nose, ears, and throat are unremarkable. Neck is supple. No lymphadenopathy. No crepitus. Cardiovascular: S1, S2, regular rate and rhythm. Pulmonary: Clear to auscultation bilaterally. Abdomen: Bowel sounds are positive. Abdomen is soft, nontender, and nondistended. Extremities: No rash, lesions, or edema. No restriction of range of motion NEUROLOGICAL EXAMINATION: Alert Oriented to time, place and person. PERRL. EOMI. CN: no focal findings. Muscle tone: within normal. Muscle strength: 5 DTR: 2 Plantar reflex: Flexor response bilaterally Gait: normal. Sensory exam: no abnormal findings. No cerebellar signs elicited. F-T-N test accurate. Objective Objective Vital Signs Date Time Temp Pulse Resp B/P (MAP) Pulse Ox O2 Delivery O2 Flow Rate FiO2 09/11/17 11:25 1 Room Air 09/11/17 10:51 98.3 78 18 110/62 (78) 98.3 Intake and Output 09/11/17 07:00 Intake Total 600 ml Balance 600 ml Intake Oral 600 ml # Voids 5 Vitals Signs Vitals VS - Last 72 Hours, by Label Date Time Temp Pulse Resp B/P (MAP) Pulse Ox O2 Delivery O2 Flow Rate FiO2 09/11/17 11:25 1 Room Air 09/11/17 10:51 98.3 78 18 110/62 (78) 100 Room Air 98.3 09/11/17 09:33 79 100/46 09/11/17 08:02 100 Room Air 09/11/17 08:00 Room Air 09/11/17 08:00 79 100/46 09/11/17 07:50 98.6 79 18 100/46 (64) 100 Room Air 98.6 09/10/17 23:17 97.9 85 18 149/53 (85) 99 Room Air 97.9 09/10/17 20:12 98 Room Air 09/10/17 20:11 98 Room Air 09/10/17 20:10 Room Air 09/10/17 19:00 97.7 91 18 151/68 (95) 99 Room Air 97.7 09/10/17 17:32 86 139/42 09/10/17 16:04 Room Air 09/10/17 15:00 97.7 86 18 139/42 (74) 100 Room Air 97.7 09/10/17 11:50 79 104/37 09/10/17 11:48 79 104/37 09/10/17 11:00 97.8 79 18 104/37 (59) 100 Room Air 97.8 09/10/17 08:32 97 Room Air 09/10/17 08:00 Room Air 09/10/17 07:00 98.3 91 16 116/51 (72) 97 Room Air 98.3 Medication Medications Current Medications Heparin Sodium (Porcine) (Hep Lock Adult) 500 unit 1X ONCE IV Last administered on 09/11/17t 13:53; Start 09/11/17 at 14:00; Stop 09/11/17 at 14 :01; Status DC Comment Review of Relevant I have reviewed the following items sola (where applicable) has been applied. ROSCOE BANGURA MD Sep 11, 2017 16:37
== END 2017-09-11 14:47 | disposition home or self-care (01) | DRG 69 ==
LOC: ER 15:18 → 6 SOUTH 18:23
PROVIDERS: ADMIT Internal Medicine Hematology & Oncology; ATTEND Internal Medicine Hematology & Oncology
DX: G45.9 Transient cerebral ischemic attack, unspecified (principal); C83.10 Mantle cell lymphoma, unspecified site; R47.01 Aphasia; M47.812 Spondylosis without myelopathy or radiculopathy, cervical region; K58.9 Irritable bowel syndrome, unspecified; K21.9 Gastro-esophageal reflux disease without esophagitis; J45.909 Unspecified asthma, uncomplicated; I10 Essential (primary) hypertension; G43.909 Migraine, unspecified, not intractable, without status migrainosus; F41.9 Anxiety disorder, unspecified; F31.9 Bipolar disorder, unspecified; M19.90 Unspecified osteoarthritis, unspecified site; E53.8 Deficiency of other specified B group vitamins; K59.00 Constipation, unspecified; E83.51 Hypocalcemia; D64.9 Anemia, unspecified; D72.819 Decreased white blood cell count, unspecified; Z90.49 Acquired absence of other specified parts of digestive tract; Z90.89 Acquired absence of other organs; Z88.2 Allergy status to sulfonamides; Z88.0 Allergy status to penicillin; Z88.1 Allergy status to other antibiotic agents; Z88.6 Allergy status to analgesic agent; Z88.8 Allergy status to other drugs, medicaments and biological substances; Z82.49 Family history of ischemic heart disease and other diseases of the circulatory system
CPT/HCPCS: 99285; C8929; 36415; 70496; 70498; 70553; 72156; 80048; 80053; 80061; 81001; 82306; 82550; 82607; 84484; 85007; 85025; 85651; 93005; 93880; 94640; 94760; 96374; 96375; 96376; A9585; J3010; J3420; J7613; J7626; Q0163; 97110; 97116